=== PATIENT | female | born 1990 | race Caucasian/White ===

== ENCOUNTER → 2020-03-14 09:31 | Outpatient (BNVA) | payer MEDICAID, SELFPAY | PROVIDERS: Family Provider Family Medicine; Visit Provider Obstetrics & Gynecology | DX: E22.1 Hyperprolactinemia (principal); N91.2 Amenorrhea, unspecified; R23.2 Flushing | CPT/HCPCS: 84146 ==

== ENCOUNTER 2020-03-31 09:12 | Emergency (ER) | payer MEDICAID, SELFPAY ==
[2020-03-31 09:25] VITALS: BP 126/87; PULSE 100; RESP 16; TEMP 35.8; O2SAT 97; BMI 37.4
--- NOTE | 2020-03-31 09:25 | ED_ITS ---
HPI - Extremity Injury (Lower) General: Chief Complaint: Extremity Problem,Nontraumatic Stated Complaint: LEFT THIGH PAIN Time Seen by Provider: 03/31/20 09:24 Source: patient Mode of arrival: ambulatory Limitations: no limitations History of Present Illness: HPI Narrative: Patient comes in with lateral upper leg pain on the left for approximately 1 week. Patient states that she usually gets leg cramps with her. But had finished her period and the cramps have continued. Patient denies any nausea vomiting or diarrhea. Patient denies any fever. Patient appears well. Patient ambulates without difficulty. Review of Systems General: Reports: 10 or more systems reviewed and unremarkable except in HPI and below Musc: Reports: extremity pain (Left lateral upper leg.) PFSH ED PFSH: Medical History (Updated 03/31/20 @ 09:42 by MYNOR Alexander) Amenorrhea Hyperprolactinemia induced Hyperprolactinemia Hypothyroidism Migraine headache Obsessive compulsive disorder Tourette's Surgical History Hx of bilateral breast reduction surgery (~07/2014) Hx of tonsillectomy (~1999) Family History Mother Family history of thyroid problem Father Diabetes Family/Other Hypertension Family history of thyroid problem SEVERAL FAMILY MEMBERS Colon cancer GREAT-GRANDMOTHER Social History Smoking and tobacco status: never smoked Alcohol intake: never Physical Exam Const: COMMON NORMALS: no acute distress and patient oriented x3 GENERAL APPEARANCE: cooperative HENMT: COMMON NORMALS: normocephalic and Normal external nose present HEAD & SCALP: normal to inspection and normocephalic NOSE: Normal external nose present MOUTH: Normal oral and palatal mucosa present Eye: GENERAL EYE: appearance normal, both eyes and all related structures Neck/C-Spine: COMMON NORMALS: full ROM Lymph: LYMPHATIC: no lymphadenopathy noted Chest: COMMONS NORMALS: normal inspection of the chest Resp: COMMON NORMALS: normal respiratory effort EFFORT & INSPECTION: Yes able to speak in complete sentences Cardio: COMMON NORMALS: regular rate and regular rhythm RATE: regular rate RHYTHM: regular rhythm GI: COMMON NORMALS: non-tender : COMMON NORMALS: Yes no CVA tenderness BLADDER/KIDNEY EXAM: Yes no CVA tenderness Back/Pelvis: COMMON NORMALS: no CVA tenderness and thoracic and lumbar spine normal to inspection Extremity: COMMON NORMALS: normal to inspection NARRATIVE EXTREMITY EXAM: Normal range of motion of the extremity, no redness or swelling to the left lower leg. Neuro: COMMON NORMALS: patient oriented x3 and moves all extremities Psych: COMMON NORMALS: mental status grossly normal and cooperative Skin: COMMON NORMALS: no rashes or lesions noted GENERAL SKIN EXAM: no rashes or lesions noted Course Vital Signs: Vital signs: Vital Signs Temperature 96.5 F L 03/31/20 09:25 Pulse Rate 100 03/31/20 09:25 Respiratory Rate 16 03/31/20 09:25 Blood Pressure 126/87 03/31/20 09:25 Pulse Oximetry 97 03/31/20 09:25 MDM - Extremity Injury (Lower) MDM Narrative: Medical decision making narrative: Patient comes in today for complaints of left thigh pain. Patient states that she gets thigh pain at times with her periods. The patient has gotten off her period and continues to have left thigh pain. Patient denies any increase in activity or fever. Patient appears well. Exam notes weightbearing individual without any significant loss of movement or favoring of the extremity. Distal pulses are intact. No significant redness or swelling is noted. Differential diagnosis includes piriformis syndrome, lumbar radiculopathy, muscle strain. Reviewed exam with patient with recommendations for treatment and need for follow-up. Patient reported understanding and agreed to plan. Believe patient probably has some musculoskeletal pain due to either a strain or a possible radiculopathy of the lumbar region. Discharge Plan Discharge Patient Disposition: Home, Self-Care Clinical Impression: Piriformis syndrome Qualifiers: Laterality: left Qualified Code(s): G57.02 - Lesion of sciatic nerve, left lower limb Condition: Stable Prescriptions: New diclofenac sodium 75 mg tablet,delayed release (DR/EC) 75 mg PO BID Qty: 14 RF: 0 baclofen 10 mg tablet 10 mg PO BID Qty: 14 RF: 0 No Action Premphase 0.625 mg (14)/ 0.625mg-5mg(14) tablet 1 tab PO QDAY RF: 0 cabergoline 0.5 mg tablet 0.5 mg PO .TWICE WEEKLY RF: 0 buspirone 5 mg tablet 5 mg PO BID RF: 0 Latuda 20 mg tablet 20 mg PO .UNKNOWN RF: 0 ibuprofen 200 mg capsule 600 mg PO Q6H PRNRF: 0 haloperidol 5 mg tablet 5 mg PO QDAY RF: 0 clomipramine 50 mg capsule 150 mg PO .BEDTIME RF: 0 lorazepam [Ativan] 0.5 mg tablet 0.5 mg PO BID RF: 0 hydroxyzine HCl 25 mg tablet 25 mg PO BID PRNRF: 0 levothyroxine 50 mcg capsule 50 mcg PO QDAY RF: 0 sumatriptan succinate 50 mg tablet 50 mg PO ONCE RF: 0 Discharge Orders: Discharge Order (Routine); Ordered 03/31/20 Ordered By: Kavon Young Referrals: Lamberto Mejias MD [Primary Care Provider] - Discharge Diet: Usual diet Discharge Activity: Increase activity as tolerated Patient Instructions: Muscle Strain (ED) Activity Restrictions/Additional Instructions: Gentle stretching and range of motion exercises. Drink plenty of water with me dication. Activity as tolerated. Follow-up with primary care in 1 week. Use acetaminophen as needed for further pain relief. Use ice or heat for further comfort. Return to the ER for increased redness or swelling to the leg or high fever. Coding Level of Care Code ED Director Of In Service Education for Cristobalg Fwd Exam Comprehensive
--- NOTE | 2020-03-31 10:26 | PC.NURSE ---
Read and agree with assessment.
== END 2020-03-31 09:59 | disposition home or self-care (01) ==
LOC: ER 10:15
PROVIDERS: Emergency Provider Nurse Practitioner Family; PCP Family Medicine
DX: G57.02 Lesion of sciatic nerve, left lower limb (principal)
CPT/HCPCS: 12345; 99281; 99282

== ENCOUNTER 2020-04-24 12:22 | Outpatient (CLI) | payer MEDICAID, SELFPAY ==
--- NOTE | 2020-04-24 12:36 | XRR_ITS ---
PROCEDURE INFORMATION: Exam: XR Left Femur Exam date and time: 04/24/2020 12:54 PM Age: 29 years old Clinical indication: Thigh; Prior surgery; Surgery date: 6+ months; Surgery type: Left knee; Patient HX: C/O left leg pain x 1 month TECHNIQUE: Imaging protocol: XR Left femur. Views: 2 views. COMPARISON: [facility] Knee LEFT 1-2 views 12/27/2014 4:38 PM FINDINGS: Bones/joints: Unremarkable. No acute fracture. Soft tissues: Unremarkable. XR/XR femur LT min 2V* [id number] IMPRESSION: No acute findings.
== END 2020-04-24 12:23 | disposition home or self-care (01) ==
LOC: RAD 12:25
PROVIDERS: PCP Family Medicine; Visit Provider Family Medicine
DX: M79.605 Pain in left leg (principal)
CPT/HCPCS: 73552

== ENCOUNTER 2020-12-23 20:38 | Emergency (ER) | payer MEDICAID, SELFPAY ==
[2020-12-23 21:20] VITALS: BP 125/90; PULSE 105; RESP 18; TEMP 36.5; O2SAT 98; BMI 40.4
--- NOTE | 2020-12-23 22:54 | ED_ITS ---
HPI - General Adult General: Chief complaint: General Medical Stated complaint: left hip and leg pain Time Seen by Provider: 12/23/20 22:54 History of Present Illness: HPI narrative: Patient is a 30-year-old female comes to the ED with lower back pain radiates down into left leg. Patient has been seen by PCP on December 15 for same complaint and she was given a steroid shot at that time. She says that the lower back pain that radiates down her left leg is still there and she rates the pain a 8 out of 10. She says the pain in her leg is described as sharp and prickly. Denies any bladder or bowel incontinence, pelvic anesthesia or weakness to lower extremities. Associated symptoms: Deny chest pain, dyspnea, headache(s), nausea, rash, palpitations or vomiting Review of Systems Const: Denies: fever(s), chills or fatigue Eyes: Denies: change in vision or eye discomfort ENMT: Denies: throat pain, odynophagia, nasal discharge or nasal congestion Card: Denies: chest pain, palpitations, edema, swelling of feet/ankles, dyspnea on exertion or orthopnea Resp: Denies: dyspnea, productive cough or non-productive cough GI: Denies: abdominal pain, nausea, vomiting, diarrhea, constipation or hematochezia : Denies: flank pain, dysuria or hematuria Musc: Reports: back pain (lower back pain that radiates down to left leg); Denies: neck pain or extremity swelling Skin/Breast: Denies: rash or new lesions Neuro: Denies: headache(s), numbness in extremities or weakness in extremities PFS ED PFSH: Medical History Amenorrhea Hyperprolactinemia induced Hyperprolactinemia Hypothyroidism Migraine headache Obsessive compulsive disorder Tourette's Surgical History Hx of bilateral breast reduction surgery (~07/2014) Hx of tonsillectomy (~1999) Family History Mother Family history of thyroid problem Father Diabetes Family/Other Hypertension Family history of thyroid problem SEVERAL FAMILY MEMBERS Colon cancer GREAT-GRANDMOTHER Social History Smoking and tobacco status: never smoked Alcohol intake: never Physical Exam Const: COMMON NORMALS: no acute distress, patient oriented x3 and alert GENERAL APPEARANCE: cooperative and comfortable HENMT: COMMON NORMALS: normocephalic HEAD & SCALP: normocephalic MOUTH: Normal oral and palatal mucosa present THROAT: posterior oropharynx normal and uvula midline Neck/C-Spine: COMMON NORMALS: supple GENERAL: Yes normal visual inspection Resp: COMMON NORMALS: normal respiratory effort, No retractions, No use of accessory muscles and clear to auscultation bilaterally AUSCULTATION: clear to auscultation bilaterally Cardio: COMMON NORMALS: regular rate, regular rhythm, S1 normal heart sound present, S2 normal heart sound present, No gallops present (Cardio), No clicks present (Cardio), No murmurs present (Cardio) and Peripheral pulses 2+ throughout RATE: regular rate RHYTHM: regular rhythm HEART SOUNDS: S1 normal heart sound present and S2 normal heart sound present PERIPHERAL PULSES: Peripheral pulses 2+ throughout GI: COMMON NORMALS: Normal to inspection, nondistended, normoactive bowel sounds present, Soft to palpation, non-tender and no masses PALPATION: Yes Soft to palpation : COMMON NORMALS: Yes no CVA tenderness BLADDER/KIDNEY EXAM: Yes no CVA tenderness Back/Pelvis: COMMON NORMALS: no CVA tenderness LUMBAR SPINE/LOWER BACK: No lumbar spinal tenderness and Yes paraspinal muscle tenderness Lumbar paraspinal muscle tenderness: left Extremity: COMMON NORMALS: normal to inspection Neuro: COMMON NORMALS: patient oriented x3 and moves all extremities SENSORIUM/ORIENTATION: Yes alert Skin: GENERAL SKIN EXAM: dry skin Course Vital Signs: Vital signs: Vital Signs Temperature 97.7 F 12/23/20 21:20 Pulse Rate 109 H 12/23/20 23:35 Respiratory Rate 18 12/23/20 23:35 Blood Pressure 137/83 12/23/20 23:35 Pulse Oximetry 96 12/23/20 23:35 MDM - General Adult MDM Narrative: Medical decision making narrative: Patient is a 30-year-old female comes to the ED with lower back pain that radiates down the left leg. History and exam findings suggestive of lumbar radiculopathy. Denies any cauda equina symptoms. Patient was discharged with a prescription for Medrol Dosepak, methocarbamol and meloxicam. Return to ED precautions given. Follow-up with PCP in 7 to 10 days reevaluation. Patient understood agree with plan. Discharge Plan Discharge Patient Disposition: Home Clinical Impression: Lumbar radiculopathy Condition: Stable Prescriptions: New methocarbamol 750 mg tablet 750 mg PO Q8H Qty: 20 RF: 0 Medrol (Chuckie) 4 mg tablets,dose pack See Rx Instructions .ROUTE .COMPLEX Qty: 21 RF: 0 meloxicam 15 mg tablet 15 mg PO DAILY Qty: 15 RF: 0 No Action Vitamin D3 Complete 5 mg RF: 0 clomipramine 150 mg DAILY RF: 0 Synthroid 125 mcg Tablet 125 mcg PO DAILY RF: 0 Ativan 1 mg Tablet 1 mg PO BID PRN (Reason: Anxiety) RF: 0 buspirone 15 mg BID RF: 0 propranolol 10 mg Tablet 10 mg PO BID RF: 0 hydroxyzine HCl 25 mg Tablet 25 mg PO BID PRN (Reason: other) RF: 0 haloperidol 5 mg BID RF: 0 Discharge Orders: Discharge ED (Routine); Ordered 12/23/20 Ordered By: Lamberto Kwon Referrals: Lamberto Mejias MD [Primary Care Provider] - Discharge Diet: Regular Discharge Activity: Increase activity as tolerated Patient Instructions: Lumbar Radiculopathy (ED) Activity Restrictions/Additional Instructions: Follow-up with medical provider as directed in 7 to 10 days for reevaluation. Take medications as prescribed. Apply cold pack on lower back to help with symptoms. Stretch lower back daily as well to help with symptoms. Methocarbamol is a muscle relaxer and can cause some drowsiness so take at night before bed. If you are any use during the day use with caution. Return to the ER or your medical provider if condition worsens. Please read and understand discharge instructions. If any questions, please ask. Coding Level of Care Code ED Refrigerator Car Icer for Alexei Fwd Exam Comprehensive
[2020-12-23] MEDS: predniSONE 20 mg Tablet 60 MG PO (23:30)
[2020-12-23] MEDS: HYDROcodone-acetaminophen 7.5-325 mg Tablet 1 TAB PO (23:30)
[2020-12-23 23:35] VITALS: BP 137/83; PULSE 109; RESP 18; O2SAT 96
== END 2020-12-23 23:36 | disposition home or self-care (01) ==
PROVIDERS: Emergency Provider Physician Assistant; PCP Family Medicine
DX: M54.16 Radiculopathy, lumbar region (principal)
CPT/HCPCS: 99283; J7512

== ENCOUNTER 2020-12-25 10:39 | Outpatient (CLI) | payer MEDICAID, SELFPAY ==
--- NOTE | 2020-12-25 10:52 | XR_ITS ---
WS: [id number] XR hip LT 2-3V wo/w pel* [id number] REASON FOR EXAM: LEFT LEG PAIN/LEFT LUMBAR RADICULOPATHY FINDINGS: Mild narrowing of the left hip joint space with minor acetabular spurring. No focal bony abnormality. No soft tissue abnormality. XR/XR hip LT 2-3V wo/w pel* [id number] IMPRESSION: Minor arthropathic change as above.
--- NOTE | 2020-12-25 10:52 | XR_ITS ---
WS: [id number] XR lumbar spine 2-3V* [id number] REASON FOR EXAM: LEFT LUMBAR RADICULOPATHY FINDINGS: There are 5 nonrib lumbar vertebrae. In the neutral position there is some loss of the normal lordosis of the lumbar spine. No focal vertebral body abnormality identified. The intervertebral disc spaces are relatively well-preserved. There is minimal degenerative facet joint change from L4 to S1. There is no abnormal movement of the lumbar spine between flexion and extension. XR/XR lumbar spine 2-3V* [id number] IMPRESSION: Straightening of the lumbar spine may be No significant findings of generalized spondylosis.
--- NOTE | 2020-12-25 10:52 | XR_ITS ---
WS: [id number] XR femur LT min 2V* [id number] REASON FOR EXAM: LEFT LEG PAIN/LEFT LUMBAR RADICULOPATHY FINDINGS: Mild loss of left hip space. Minor osteophytic spurring of the acetabulum. No focal bony abnormality. No soft tissue abnormality. XR/XR femur LT min 2V* [id number] IMPRESSION: Minimal arthropathic change as above.
== END 2020-12-25 10:40 | disposition home or self-care (01) ==
PROVIDERS: PCP Family Medicine; Visit Provider Family Medicine
DX: M54.16 Radiculopathy, lumbar region (principal); M79.605 Pain in left leg
CPT/HCPCS: 72100; 73502; 73552

== ENCOUNTER 2021-01-14 08:20 | Outpatient (RCR) | payer MEDICAID, SELFPAY | END 2021-01-30 11:46 | disposition home or self-care (01) | LOC: SPT 08:20 | PROVIDERS: PCP Family Medicine; Referring Provider Family Medicine; Visit Provider Family Medicine | DX: M54.9 Dorsalgia, unspecified (principal) | CPT/HCPCS: 97110; 97161 ==

== ENCOUNTER → 2021-05-28 14:44 | Outpatient (BNVA) | payer MEDICAID, SELFPAY | PROVIDERS: PCP Family Medicine; Visit Provider Obstetrics & Gynecology | DX: Z12.4 Encounter for screening for malignant neoplasm of cervix (principal) | CPT/HCPCS: 88175 ==

== ENCOUNTER → 2021-07-04 14:02 | Outpatient (BNVA) | payer MEDICAID, SELFPAY | PROVIDERS: PCP Family Medicine; Visit Provider Podiatrist Foot & Ankle Surgery | DX: S92.512A Displaced fracture of proximal phalanx of left lesser toe(s), initial encounter for closed fracture (principal); M21.612 Bunion of left foot; M79.672 Pain in left foot; X58.XXXA Exposure to other specified factors, initial encounter | CPT/HCPCS: 73630 ==

== ENCOUNTER 2021-07-04 14:56 | Outpatient (CLI) | payer MEDICAID, SELFPAY | END 2021-07-04 14:57 | disposition home or self-care (01) | LOC: SPT 14:57 | PROVIDERS: PCP Family Medicine; Visit Provider Podiatrist Foot & Ankle Surgery | DX: Z46.89 Encounter for fitting and adjustment of other specified devices (principal); S92.402D Displaced unspecified fracture of left great toe, subsequent encounter for fracture with routine healing; X58.XXXD Exposure to other specified factors, subsequent encounter | CPT/HCPCS: 97760; L4361 ==

== ENCOUNTER 2021-07-13 14:05 | Emergency (ER) | payer MEDICAID, SELFPAY ==
[2021-07-13 14:24] VITALS: BP 124/76; PULSE 90; RESP 18; TEMP 36.6; O2SAT 96; BMI 20.7
--- NOTE | 2021-07-13 16:15 | CTR_ITS ---
PROCEDURE INFORMATION: Exam: CT Head Without Contrast Exam date and time: 07/13/2021 4:15 PM Age: 31 years old Clinical indication: Pain; Headache not specified; Patient HX: C/O LEVIN and nausea; Additional info: Evaluate for pituitary adenoma/bleed/ etc TECHNIQUE: Imaging protocol: Computed tomography of the head without contrast. Total images: 185 Radiation optimization: All CT scans at this facility use at least one of these dose optimization techniques: automated exposure control; mA and/or kV adjustment per patient size (includes targeted exams where dose is matched to clinical indication); or iterative reconstruction. COMPARISON: CT head wo con* [id number] 08/10/2016 4:17 PM RADIATION DOSE METRICS: Total DLP (mGy-cm): 802.36 FINDINGS: Brain: No evidence of active or acute intracranial pathologic process, hemorrhage, or trauma. No visible evidence of diffuse cerebral edema or generalized demyelination. No mass effect. No midline shift. No hyperdense MCA or insular ribbon sign. Cerebral ventricles: No ventriculomegaly. Paranasal sinuses: Visualized sinuses are unremarkable. No fluid levels. Mastoid air cells: Visualized mastoid air cells are well aerated. Bones/joints: Unremarkable. No acute fracture. Soft tissues: Unremarkable. CT/CT head wo con* [id number] IMPRESSION: No evidence of active or acute intracranial pathologic process, hemorrhage, or trauma. Radiation Dose CTDIVOL = (mGy): DLP = 802.36 (mGy-cm)
[2021-07-13 16:27] VITALS: BP 122/82; PULSE 92; RESP 18; O2SAT 98
--- NOTE | 2021-07-13 16:28 | PC.NURSE ---
pt stated pain decreasing, doing a little better per pt
--- NOTE | 2021-07-13 17:33 | W.ED.HA ---
HPI - Headache General: Chief Complaint: Headache Stated Complaint: h/a Time Seen by Provider: 07/13/21 17:33 History of Present Illness: HPI Narrative: Ms. Dye is a 31-year-old lady with significant past medical history of psychiatric disorder who presents the emergency department due to headache. She does have a history of headache but does not recall any specifically 1 in the past few years. Most recently this episode started approximately 3 to 4 days ago and was subacute. She endorses migratory generalized aching and sharp pain which is moderate in intensity. Initially started in the left forehead but her sister migrated. Symptoms are associated with nausea but no vomiting. She does have generalized malaise. No other infectious symptoms. She notes associated sound sensitivity or light sensitivity. No other specific changes in health, exacerbating, or alleviating factors identified. Review of Systems General: Reports: 10 or more systems reviewed and unremarkable except in HPI and below PFSH ED PFSH: Medical History Hyperprolactinemia Diagnosed in her 20s and managed by ventilating equipment installer Dr. Nick in [facility]. She does not think she is on any medication. Hypothyroidism Diagnosed in her 20s and managed on medication by ventilating equipment installer Dr. Nick in [facility] No pertinent past medical history Denies diabetes, asthma, hypertension, seizures, DVT/PE PCP: Dr. Mejias Obsessive compulsive disorder , Tourette's disease--managed by medication by psychiatrist Dr. Martin in [place]. Surgical History Hx of bilateral breast reduction surgery (~07/2014) Hx of tonsillectomy (~1999) Family History Mother Thyroid condition thyroid cancer Hypertension Father Diabetes Thyroid condition Family/Other Colon cancer maternal great grandmother Grandmother Heart disease maternal Hypertension materal Grandfather Hypertension maternal Denies family history of Ovarian cancer Hyperlipidemia Breast cancer Uterine cancer Stroke Social History Alcohol intake: never Physical Exam Narrative: EXAM NARRATIVE: GENERAL/CONSTITUTIONAL - well-appearing. No acute distress. Eyes - PERRL, no conjunctival injection ENMT - Atraumatic external nose and ears. Moist mucous membranes NECK - supple. trachea midline CARDIOVASCULAR - regular rate and rhythm. Peripheral pulses 2+ and equal RESPIRATORY -clear to auscultation bilaterally. No retractions or accessory muscle use. ABDOMEN/GI - Nontender, Nondistended. No tenderness to percussion or evidence of peritonitis MSK - Extremities without obvious deformity or tenderness to palpation SKIN - Warm, Dry NEURO - alert and appropriately oriented. Cranial nerves II through XII intact. Strength and sensation intact. Moves all extremities equally. PSYCH - Appropriate mood and affect Course ED course: - Patient was seen and evaluated by me at bedside - Patient placed on cardiac monitors, IV access obtained - Initial evaluation notable for discomfort due to headache, mild photophobia. Nontoxic. - Headache cocktail ordered. - Due to ED workload and limited room availability a CT of the head have been ordered prior to my evaluation of the patient. Given no recent imaging in moderate system and unclear history of hyperprolactinemia this was appropriate. Imaging notable for no acute abnormality. - Upon serial reexamination after treatment the patient was improved with resolution of headache - Based on patient history, evaluation, labs, and imaging as interpreted the most likely cause of the patient's condition is headache likely secondary to headache disorder - The results of ED evaluation were discussed with the patient including prescriptions and/or symptomatic cares (if applicable) including appropriate and responsible use, followup plan, and return precautions. The patient verbalized understanding and felt safe for discharge. - Patient discharged in satisfactory condition. Vital Signs: Vital signs: Vital Signs Temperature 97.9 F 07/13/21 14:24 Pulse Rate 77 07/13/21 19:31 Respiratory Rate 18 07/13/21 19:31 Blood Pressure 124/77 07/13/21 19:31 Pulse Oximetry 99 07/13/21 19:31 MDM - Headache Medical Records: Attestation: I reviewed the patient's medical records. Lab Data: Attestation: I reviewed the patient's lab results. Labs: Lab Results 07/13/21 18:13 HCG, Qual Negative (Negative) Discharge Plan Discharge Patient Disposition: Home Clinical Impression: Headache Condition: Stable Prescriptions: New Reglan 10 mg tablet 10 mg PO Q6H PRN (Reason: headache) Qty: 5 RF: 0 No Action polyethylene glycol 3350 17 gram/dose powder 17 g PO BID PRNRF: 0 hydrocodone-acetaminophen 5-325 mg tablet 1 tab PO Q8H PRN (Reason: pain) 7 Days Qty: 21 RF: 0 (DME) [facility] WALKER See Rx Instructions .Route .MEDSUPPLY Qty: 1 RF: 0 Premphase 0.625 mg (14)/ 0.625mg-5mg(14) tablet 1 tab PO DAILY Qty: 28 RF: 11 Vitamin D3 Complete 5 mg RF: 0 clomipramine 150 mg DAILY RF: 0 Synthroid 125 mcg Tablet 125 mcg PO DAILY RF: 0 Ativan 1 mg Tablet 1 mg PO BID PRN (Reason: Anxiety) RF: 0 buspirone 15 mg BID RF: 0 propranolol 10 mg Tablet 10 mg PO BID RF: 0 haloperidol 5 mg BID RF: 0 methocarbamol 750 mg tablet 750 mg PO Q8H Qty: 20 RF: 0 hydroxyzine HCl 25 mg tablet 25 mg PO BID RF: 0 Discharge Orders: Discharge ED (Routine); Ordered 07/13/21 Ordered By: Margarito Ruby Referrals: Lamberto Mejias MD [Primary Care Provider] - Discharge Diet: Usual diet Discharge Activity: Resume usual activity Patient Instructions: Acute Headache (ED) Activity Restrictions/Additional Instructions: Thank you for visiting the emergency department. You were seen and evaluated for headache. The exact cause of your symptoms is unclear though is likely related to headache disorder. Please follow-up with your primary care provider. Please return the emergency department for worsening symptoms or anything else that you are concerned about and feel needs emergent evaluation. Coding Level of Care Code ED Creative Manager for Alexei Zhao
[2021-07-13] MEDS: metoclopramide 5 mg/mL SDV 2 mL 10 MG IVP (18:05)
[2021-07-13] MEDS: acetaminophen 500 mg Tablet 1000 MG PO (18:05)
[2021-07-13] MEDS: diphenhydrAMINE 50 mg/mL SDV 1mL 25 MG IVP (18:06)
[2021-07-13] MEDS: sodium chloride 0.9% 1,000 ML 999 ML IV (18:06)
[2021-07-13 18:31] LABS: HCG Qualitative Urine. Negative (Negative)
[2021-07-13 19:31] VITALS: BP 124/77; PULSE 77; RESP 18; O2SAT 99
== END 2021-07-13 19:32 | disposition home or self-care (01) ==
PROVIDERS: Emergency Provider Emergency Medicine; PCP Family Medicine
DX: R51.9 Headache, unspecified (principal)
CPT/HCPCS: 70450; 81025; 96361; 96374; 96375; 99283; J1200; J2765; J7030

== ENCOUNTER → 2021-07-24 11:14 | Outpatient (BNVA) | payer MEDICAID, SELFPAY | PROVIDERS: PCP Family Medicine; Visit Provider Podiatrist Foot & Ankle Surgery | DX: S92.415A Nondisplaced fracture of proximal phalanx of left great toe, initial encounter for closed fracture; S92.502A Displaced unspecified fracture of left lesser toe(s), initial encounter for closed fracture; M79.672 Pain in left foot; X58.XXXA Exposure to other specified factors, initial encounter | CPT/HCPCS: 73630 ==

== ENCOUNTER 2021-08-02 19:51 | Emergency (ER) | payer MEDICAID, SELFPAY ==
[2021-08-02 19:57] VITALS: BP 155/94; PULSE 108; RESP 18; TEMP 36.1; O2SAT 95; BMI 37.9
--- NOTE | 2021-08-02 20:56 | ED_ITS ---
HPI - General Adult General: Chief complaint: Psychiatric Symptoms Stated complaint: psych pt Time Seen by Provider: 08/02/21 19:57 History of Present Illness: HPI narrative: HPI: [31]yo patient w/ hx of depression and anxiety presenting to the ED after she called the police and got into an altercatoin with her parents. On arrival, the patient is AAOx3 and cooperative with my evaluation. Patient denies any thoughts of hurting self, but reports significant anxiety and hopelessness. No focal complaints of chest pain, shortness of breath, palpitations, N/V, focal GI/ complaints. Currently denies SI/HI. No complaints of hallucinations. Onset: chronic Duration: ongoing Location: home Severity: moderate Review of Systems Narrative: Constitutional: No fever, no chills. HEENT: No vision changes CV: No chest pain, no palpitations PULM: No productive cough, no dyspnea. GI: No abdominal pain, no N/V/D. : No dysuria MSKEL: No muscle pain SKIN: No new rashes, no lesions. NEURO: No headache, no focal weakness. HEME: No visible bruises PSYCH: Normal mood PFSH ED PFSH: Medical History Hyperprolactinemia Diagnosed in her 20s and managed by tool and machine maintainer Dr. Nick in [facility]. She does not think she is on any medication. Hypothyroidism Diagnosed in her 20s and managed on medication by tool and machine maintainer Dr. Nick in [facility] No pertinent past medical history Denies diabetes, asthma, hypertension, seizures, DVT/PE PCP: Dr. Mejias Obsessive compulsive disorder , Tourette's disease--managed by medication by psychiatrist Dr. Martin in [place]. Surgical History Hx of bilateral breast reduction surgery (~07/2014) Hx of tonsillectomy (~1999) Family History Mother Thyroid condition thyroid cancer Hypertension Father Diabetes Thyroid condition Family/Other Colon cancer maternal great grandmother Grandmother Heart disease maternal Hypertension materal Grandfather Hypertension maternal Denies family history of Ovarian cancer Hyperlipidemia Breast cancer Uterine cancer Stroke Social History Alcohol intake: never Physical Exam Narrative: EXAM NARRATIVE: Head: Atraumatic Eyes: PERRL, conjunctiva without injection, eyes tracking ENT: Mucous membrane moist NECK: Supple without lymphadenopathy LUNGS: LCTAB CV: RRR ABDOMEN: Soft, nontender EXTREMITY: Normal ROM SKIN: No rash or erythema NEURO: Awake and alert. No focal weakness PSYCH: Cooperative mood and affect. Course Vital Signs: Vital signs: Vital Signs Temperature 96.9 F L 08/02/21 19:57 Pulse Rate 108 H 08/02/21 19:57 Respiratory Rate 18 08/02/21 19:57 Blood Pressure 155/94 08/02/21 19:57 Pulse Oximetry 95 08/02/21 19:57 MDM - General Adult MDM Narrative: Medical decision making narrative: [31]yo patient w/ hx of depression and anxiety presenting for hopelessness and anxiety. HDS, exam within normal limit Thoughts are linear and organized, and the patient has no AH/VH, or HI. Clinically the patient displays no overt toxidrome; they are well appearing, with low suspicion for toxic ingestion given history and exam. Symptoms unlikely 2/2 anemia, hypothyroidism, infection, or ICH. [8:57] Patient is hemodynamically stable with no acute medical complaints. Case discussed with psychiatric provider Dr. Gay at [facility] psych inpatient who evaluated patient via telepsych and recommended discharge with close follow-up. Disposition: Discharge Discharge Plan Discharge Patient Disposition: Home Clinical Impression: Anxiety Condition: Stable Prescriptions: No Action polyethylene glycol 3350 17 gram/dose powder 17 g PO BID PRNRF: 0 Premphase 0.625 mg (14)/ 0.625mg-5mg(14) tablet 1 tab PO DAILY Qty: 28 RF: 11 Vitamin D3 Complete 5 mg RF: 0 clomipramine 150 mg DAILY RF: 0 Synthroid 125 mcg Tablet 125 mcg PO DAILY RF: 0 Ativan 1 mg Tablet 1 mg PO BID PRN (Reason: Anxiety) RF: 0 buspirone 15 mg BID RF: 0 propranolol 10 mg Tablet 10 mg PO BID RF: 0 haloperidol 5 mg BID RF: 0 methocarbamol 750 mg tablet 750 mg PO Q8H Qty: 20 RF: 0 hydroxyzine HCl 25 mg tablet 25 mg PO BID RF: 0 Reglan 10 mg tablet 10 mg PO Q6H PRN (Reason: headache) Qty: 5 RF: 0 Discharge Orders: Discharge ED (Routine); Ordered 08/02/21 Ordered By: Meredith Watson Referrals: Lamberto Mejias MD [Primary Care Provider] - Discharge Diet: Advance as tolerated Discharge Activity: Resume usual activity Patient Instructions: Anxiety (ED) Activity Restrictions/Additional Instructions: Please come back to the emergency room have any worsening symptoms, any thoughts of hurting yourself or other people, or any active hallucinations. Coding Level of Care Code ED Human Resources Hr Generalist for Alexei Zhao
[2021-08-02 21:03] VITALS: BP 152/82; PULSE 114; RESP 18; O2SAT 98
--- NOTE | 2021-08-02 21:20 | PM.PSYCN ---
Providers/Reason for Consult Consulting Physican/Specialty*: Darren Gay MD/psychiatry Reason for Consult*: Altercation with parents Primary Care Provider: Lamberto Mejias MD Psych Consult HPI History of Present Illness Kailyn Dye is a 31 year old female the ED note states: [31]yo patient w/ hx of depression and anxiety presenting to the ED after she called the police and got into an altercation with her parents. On arrival, the patient is AAOx3 and cooperative with my evaluation. Patient denies any thoughts of hurting self, but reports significant anxiety and hopelessness. No focal complaints of chest pain, shortness of breath, palpitations, N/V, focal GI/ complaints. Currently denies SI/HI. No complaints of hallucinations. I met with the patient via televideo. The patient agrees that she did have an altercation with her parents. She says she has been stressed recently because of a work situation. This exacerbated the conflict with her parents. She has now made up with them and feels much better. In fact, she was on the phone with her mother when the video started. Her mother indicated that she and her father were on their way to pick her up. She denies any urges to harm herself or others. She denies any previous suicidal ideation, suicide attempts, or violence to others. No substance use. She does have a history of psychiatric treatment for OCD and Tourette's, and sees Dr. Stephon Mcguire in [place], [place] for medication management. She was hospitalized multiple times when she was younger and none in the last 9 years. PFSH NPU PFSH: Medical History Hyperprolactinemia Diagnosed in her 20s and managed by technology training associate Dr. Nick in [facility]. She does not think she is on any medication. Hypothyroidism Diagnosed in her 20s and managed on medication by technology training associate Dr. Nick in [facility] No pertinent past medical history Denies diabetes, asthma, hypertension, seizures, DVT/PE PCP: Dr. Mejias Obsessive compulsive disorder , Tourette's disease--managed by medication by psychiatrist Dr. Martin in [place]. Surgical History Hx of bilateral breast reduction surgery (~07/2014) Hx of tonsillectomy (~1999) Family History Mother Thyroid condition thyroid cancer Hypertension Father Diabetes Thyroid condition Family/Other Colon cancer maternal great grandmother Grandmother Heart disease maternal Hypertension materal Grandfather Hypertension maternal Denies family history of Ovarian cancer Hyperlipidemia Breast cancer Uterine cancer Stroke Social History Alcohol intake: never Mental Status Exam MSE Comments: I met with the patient in her ED room per televideo. She was dressed in hospital scrubs and appropriately groomed. She was fairly calm, cooperative, interactive, and made good eye contact. No psychomotor agitation or retardation Speech is at a regular rate and rhythm, normal volume, good articulation, not pressured Alert, oriented to person, place, time, and situation Attention and concentration were intact to exam Memory is adequate for the interview Mood is still somewhat upset. Affect is pleasant, although still a bit anxious. Thought process is logical and goal-directed. Thought content: No auditory or visual hallucinations, no suicidal ideation or homicidal ideation. No delusions or paranoia are noted. Insight and judgment are fair. Impulse control is fair as well. Vitals/I&O/Wt Last Vital Signs Temp 96.9 F L 08/02/21 19:57 Pulse 114 H 08/02/21 21:03 Resp 18 08/02/21 21:03 BP 152/82 08/02/21 21:03 Pulse Ox 98 08/02/21 21:03 Weight last 48 hrs Weight 103.419 kg A&P Assessment and plan (1) Anxiety: The patient did have an altercation with her parents earlier and is still a bit anxious about it. She has no suicidal or homicidal ideation, nor does she have a history of such. Her risk of harm to self is low, and is expected to be even lower when her parents arrived to take her back home. They will be able to keep an eye on her, as she lives with them. She can follow-up with her outpatient provider, if needed. Status: Acute (2) Fracture of second toe, left, closed: Status: Acute Qualifiers: Encounter type: subsequent encounter Fracture healing: with routine healing Qualified Code(s): S92.502D - Displaced unspecified fracture of left lesser toe(s), subsequent encounter for fracture with routine healing (3) Fracture of left great toe: Status: Acute Qualifiers: Encounter type: subsequent encounter Fracture type: closed Phalanx: proximal Fracture alignment: nondisplaced Fracture healing: with routine healing Qualified Code(s): S92.415D - Nondisplaced fracture of proximal phalanx of left great toe, subsequent encounter for fracture with routine healing (4) Obsessive compulsive disorder: Status: Acute (5) Hypothyroidism: Status: Acute (6) Hyperprolactinemia: Status: Acute Attestations NPU Medical Necessity Statement*: Per ED provider Coding Level of Care Code Acute Product Development Manager for g Fwd Diagnoses Anxiety F41.9 Fracture of second toe, left, closed S92.502D Encounter type: subsequent encounter Fracture healing: with routine healing Fracture of left great toe S92.415D Encounter type: subsequent encounter Fracture type: closed Phalanx: proximal Fracture alignment: nondisplaced Fracture healing: with routine healing Obsessive compulsive disorder F42.9 Hypothyroidism E03.9 Hyperprolactinemia E22.1
== END 2021-08-02 21:06 | disposition home or self-care (01) ==
PROVIDERS: Emergency Provider Emergency Medicine; PCP Family Medicine
DX: F41.9 Anxiety disorder, unspecified (principal)
CPT/HCPCS: 99283; Q3014

== ENCOUNTER 2021-09-11 17:28 | Emergency (ER) | payer MEDICAID, SELFPAY ==
[2021-09-11 18:13] VITALS: BP 114/78; PULSE 98; RESP 18; TEMP 36.9; O2SAT 95; BMI 37.9
[2021-09-11 18:53] LABS: Charge for UA Resulting for Rev
[2021-09-11 19:01] LABS: Add Urine Microscopic? YES; Bilirubin Urine Neg (Negative); Blood Urine 3+ (Negative); Glucose Urine UA Norm (Normal); Ketones Urine Negative (Negative); Leukocyte Esterase Urine Negative (Negative); Nitrate Urine Negative (Negative); Protein Urine Neg (Negative); Urine Appearance Hazy (CLEAR); Urine Color Straw (Yellow); Urobilinogen Urine Norm (Negative); pH Urine 5 (5-7)
[2021-09-11 19:02] LABS: Bacteria Urine 1+ /hpf; WBC Urine 0-4 /hpf (0-5)
[2021-09-11 19:03] LABS: Add Urine Culture? No; Mucus Urine 1+ /hpf
--- NOTE | 2021-09-11 21:09 | ED_ITS ---
HPI - Female Genitourinary General: Chief complaint: Urogenital-Female Stated complaint: UTI COMPLICATIONS/LOWER BACK PAIN Time Seen by Provider: 09/11/21 20:39 History of Present Illness: HPI Narrative: Patient is a 31-year-old female comes to the ED with lower back pain. Patient has been seeing her PCP in the last 5 days and was being treated for UTI. She is still currently taking her antibiotic daily. her UTI symptoms have resolved but over the past couple days she has developed some bilateral lower back pain. Pain improves if she is laying still. If she starts moving back pain gets worse. She endorses wrestling and lifting approximately 4 days ago and her symptoms started couple days after that. Patient says she is currently on her menstrual period. Associated symptoms: Deny abdominal pain, headache(s) or nausea Review of Systems Const: Denies: fever(s), chills or fatigue Eyes: Denies: change in vision or eye discomfort ENMT: Denies: throat pain, odynophagia, nasal discharge or nasal congestion Card: Denies: chest pain, palpitations, edema, swelling of feet/ankles, dyspnea on exertion or orthopnea Resp: Denies: dyspnea, productive cough or non-productive cough GI: Denies: abdominal pain, nausea, vomiting, diarrhea, constipation or hematochezia : Denies: flank pain, dysuria or hematuria Musc: Reports: back pain; Denies: neck pain or extremity swelling Skin/Breast: Denies: rash or new lesions Neuro: Denies: headache(s), numbness in extremities or weakness in extremities [facility] ED PFSH: Medical History Hyperprolactinemia Diagnosed in her 20s and managed by music theory professor Dr. Nick in [facility]. She does not think she is on any medication. Hypothyroidism Diagnosed in her 20s and managed on medication by music theory professor Dr. Nick in [facility] No pertinent past medical history Denies diabetes, asthma, hypertension, seizures, DVT/PE PCP: Dr. Mejias Obsessive compulsive disorder , Tourette's disease--managed by medication by psychiatrist Dr. Martin in [place]. Surgical History Hx of bilateral breast reduction surgery (~07/2014) Hx of tonsillectomy (~2000) Family History Mother Thyroid condition thyroid cancer Hypertension Father Diabetes Thyroid condition Family/Other Colon cancer maternal great grandmother Grandmother Heart disease maternal Hypertension materal Grandfather Hypertension maternal Denies family history of Ovarian cancer Hyperlipidemia Breast cancer Uterine cancer Stroke Social History Alcohol intake: never Physical Exam Const: COMMON NORMALS: no acute distress, patient oriented x3, healthy appearing and alert GENERAL APPEARANCE: cooperative and comfortable HENMT: COMMON NORMALS: normocephalic HEAD & SCALP: normocephalic MOUTH: Normal oral and palatal mucosa present THROAT: posterior oropharynx normal and uvula midline Neck/C-Spine: COMMON NORMALS: supple GENERAL: Yes normal visual inspection Resp: COMMON NORMALS: normal respiratory effort, No retractions, No use of accessory muscles and clear to auscultation bilaterally AUSCULTATION: clear to auscultation bilaterally Cardio: COMMON NORMALS: regular rate, regular rhythm, S1 normal heart sound present, S2 normal heart sound present, No gallops present (Cardio), No clicks present (Cardio), No murmurs present (Cardio) and Peripheral pulses 2+ throughout RATE: regular rate RHYTHM: regular rhythm HEART SOUNDS: S1 normal heart sound present and S2 normal heart sound present PERIPHERAL PULSES: Peripheral pulses 2+ throughout GI: COMMON NORMALS: Normal to inspection, nondistended, normoactive bowel sounds present, Soft to palpation, non-tender and no masses PALPATION: Yes Soft to palpation : COMMON NORMALS: Yes no CVA tenderness BLADDER/KIDNEY EXAM: Yes no CVA tenderness Back/Pelvis: COMMON NORMALS: no CVA tenderness LUMBAR SPINE/LOWER BACK: Yes pain with ROM and Yes paraspinal muscle tenderness Lumbar paraspinal muscle tenderness: bilateral Bilateral lumbar paraspinal muscle tenderness: L3 and L4 Neuro: COMMON NORMALS: patient oriented x3 and moves all extremities SENSORIUM/ORIENTATION: Yes alert Skin: GENERAL SKIN EXAM: dry skin Course Vital Signs: Vital signs: Vital Signs Temperature 98.4 F 09/11/21 18:13 Pulse Rate 98 09/11/21 18:13 Respiratory Rate 18 09/11/21 18:13 Blood Pressure 114/78 09/11/21 18:13 Pulse Oximetry 95 09/11/21 18:13 MDM - Female MDM Narrative: Medical decision making narrative: Patient is a 31-year-old female comes to the ED with lower back pain. Patient's symptoms started couple days after she was wrestling and lifted something heavy. Lower back pain worsens with movement and improves if she is resting and lying still. She is currently being treated for UTI and says her symptoms for UTI have resolved exam of patient shows some lumbar muscular tenderness to palpation. Vitals stable. Patient is currently on her menstrual period. UA showed a little bit of blood, but no signs of infection. patient diagnosed with musculoskeletal back pain and given a dose of Toradol and Norflex while here in the ED. Patient was discharged home with a prescription for Celebrex and cyclobenzaprine. She was told to follow-up with her PCP in 7 to 10 days for reevaluation. Return to ED precautions given. Patient understood agree with plan. Lab Data: Labs: Lab Results 09/11/21 18:28 Urine Color Straw (Yellow) Urine Appearance Hazy A (CLEAR) Urine pH 5 (5-7) Ur Specific Gravit y 1.020 (1.005-1.030) Urine Protein Neg (Negative) Urine Glucose (UA) Norm (Normal) Urine Ketones Negative (Negative) Urine Blood 3+ H (Negative) Urine Nitrate Negative (Negative) Urine Bilirubin Neg (Negative) Urine Urobilinogen Norm mg/dL mg/dL (Negative) Ur Leukocyte Ashli ase Negative (Negative) Urine RBC Not Reportable Urine WBC 0-4 /hpf H /hpf (0-5) Ur Squamous Epith Cells 5-10 /hpf H /hpf (0-5) Amorphous Sediment Not Reportable Urine Bacteria 1+ /hpf H /hpf (NONE) Urine Mucus 1+ /hpf /hpf Discharge Plan Discharge Patient Disposition: Home Clinical Impression: Musculoskeletal back pain Condition: Stable Prescriptions: New Celebrex 100 mg capsule 100 mg PO BID PRN (Reason: pain) Qty: 20 RF: 0 cyclobenzaprine 10 mg tablet 10 mg PO BID PRN (Reason: muscle spasm) Qty: 20 RF: 0 No Action polyethylene glycol 3350 17 gram/dose powder 17 g PO BID PRNRF: 0 Premphase 0.625 mg (14)/ 0.625mg-5mg(14) tablet 1 tab PO DAILY Qty: 28 RF: 11 Vitamin D3 Complete 5 mg RF: 0 clomipramine 150 mg DAILY RF: 0 Synthroid 125 mcg Tablet 125 mcg PO DAILY RF: 0 Ativan 1 mg Tablet 1 mg PO BID PRN (Reason: Anxiety) RF: 0 buspirone 15 mg BID RF: 0 propranolol 10 mg Tablet 10 mg PO BID RF: 0 haloperidol 5 mg BID RF: 0 methocarbamol 750 mg tablet 750 mg PO Q8H Qty: 20 RF: 0 hydroxyzine HCl 25 mg tablet 25 mg PO BID RF: 0 Reglan 10 mg tablet 10 mg PO Q6H PRN (Reason: headache) Qty: 5 RF: 0 Discharge Orders: Discharge ED (Routine); Ordered 09/11/21 Ordered By: Lamberto Kwon Referrals: Lamberto Mejias MD [Primary Care Provider] - Discharge Diet: Regular Discharge Activity: Increase activity as tolerated Patient Instructions: Low Back Strain (ED), Back Pain (ED) Activity Restrictions/Additional Instructions: Follow-up with medical provider as directed in 7 to 10 days for reevaluation. Limit any lifting and rest for the next 3 to 5 days to help with healing. Take medications as prescribed. Cyclobenzaprine is a muscle relaxer and can cause some drowsiness so take at night before going to bed. You can also take some Tylenol throughout the day as well to help with pain as needed. You can take up to 1000 mg dose of Tylenol approximately three times a day as needed for pain. Apply cold pack or heat on lower back to help with symptoms. Stretch lower back two times a day to help with symptoms. Continue taking your previously prescribed antibiotic until prescription is finished. Drink plenty of water and stay hydrated. Return to the ER or your medical provider if condition worsens. Please read and understand discharge instructions. Thank you for choosing [facility] for your healthcare needs today. Please realize this is an emergency room and that we are providing you with a medical screening exam and this may not be complete and all inclusive of all the testing and or work up that you may need to determine your ailment or severity of your illness. It is very important that you follow up as instructed or that you return to the Emergency Department should you have concerns or if your condition changes or worsens in any way. Coding Level of Care Code ED Hospitality Team Member for Alexei Zhao Exam Comprehensive
[2021-09-11] MEDS: orphenadrine 30 mg/mL Inj 2 mL 60 MG IM (21:15)
[2021-09-11] MEDS: ketorolac 60 mg/2 mL INJ IM (21:17)
== END 2021-09-11 21:41 | disposition home or self-care (01) ==
PROVIDERS: Emergency Medicine; Emergency Provider Physician Assistant; PCP Family Medicine
DX: M54.9 Dorsalgia, unspecified (principal)
CPT/HCPCS: 81001; 81003; 96372; 99283; J1885; J2360

== ENCOUNTER → 2021-09-22 13:00 | Outpatient (BNVA) | payer MEDICAID, SELFPAY | PROVIDERS: PCP Family Medicine; Visit Provider Podiatrist Foot & Ankle Surgery | DX: S92.415D Nondisplaced fracture of proximal phalanx of left great toe, subsequent encounter for fracture with routine healing (principal); S92.502D Displaced unspecified fracture of left lesser toe(s), subsequent encounter for fracture with routine healing; X58.XXXD Exposure to other specified factors, subsequent encounter | CPT/HCPCS: 73630 ==

== ENCOUNTER 2021-10-20 07:59 | Outpatient (CLI) | payer MEDICAID, SELFPAY ==
[2021-10-20 08:02] VITALS: BP 144/97; PULSE 95; RESP 17; TEMP 36.6; O2SAT 99; BMI 39.1
[2021-10-20 08:51] VITALS: BP 133/90; PULSE 93; RESP 17; TEMP 36.9; O2SAT 99
[2021-10-20 09:43] VITALS: BP 120/83; PULSE 90; RESP 17; TEMP 36.6; O2SAT 99
[2021-10-20 09:44] VITALS: BP 120/83; PULSE 90; RESP 17; TEMP 36.6; O2SAT 99
== END 2021-10-20 08:00 | disposition home or self-care (01) ==
LOC: OPS 08:03
PROVIDERS: PCP Family Medicine; Visit Provider Nurse Practitioner
DX: U07.1 COVID-19 (principal)
CPT/HCPCS: 96365

== ENCOUNTER → 2021-12-15 09:13 | Outpatient (BNVA) | payer MEDICAID, SELFPAY | PROVIDERS: PCP Family Medicine; Visit Provider Podiatrist Foot & Ankle Surgery | DX: S92.502A Displaced unspecified fracture of left lesser toe(s), initial encounter for closed fracture (principal); S92.402A Displaced unspecified fracture of left great toe, initial encounter for closed fracture | CPT/HCPCS: 73630 ==

== ENCOUNTER 2022-03-14 09:46 | Outpatient (CLI) | payer MEDICAID, SELFPAY ==
--- NOTE | 2022-03-14 | XR_ITS ---
WS: [id number] Exam: XR ankle LT min 3V* [id number] Date/Time of Exam: 03/14/2022 12:00 AM Reason For Exam: LEFT ANKLE PAIN Findings: Multiple views of the ankle reveal no fracture or displacements of bone. No soft tissue swelling is present. There are no periosteal reactions noted. The talus and calcaneus are in adequate position. The joint space is smooth and equidistant. XR/XR ankle LT min 3V* [id number] IMPRESSION: Negative left ankle.
--- NOTE | 2022-03-14 | XR_ITS ---
WS: [id number] Exam: XR tibia fibula LT 2V [id number] Date/Time of Exam: 03/14/2022 12:00 AM Reason For Exam: LEFT AKNLE PAIN No fracture or dislocation. Articular relationships are intact. Normal soft tissues. XR/XR tibia fibula LT 2V [id number] IMPRESSION: 1. Negative left tibia and fibula.
== END 2022-03-14 09:47 | disposition home or self-care (01) ==
LOC: RADOUTREAD 03-19 09:48
PROVIDERS: PCP Family Medicine; Visit Provider Nurse Practitioner Family
DX: M25.572 Pain in left ankle and joints of left foot (principal)
CPT/HCPCS: 73590; 73610

== ENCOUNTER → 2022-04-17 13:00 | Outpatient (BNVA) | payer MEDICAID, SELFPAY | PROVIDERS: PCP Family Medicine; Referring Provider Nurse Practitioner Family; Visit Provider Podiatrist Foot & Ankle Surgery | DX: M25.572 Pain in left ankle and joints of left foot (principal); S93.402A Sprain of unspecified ligament of left ankle, initial encounter; X58.XXXA Exposure to other specified factors, initial encounter | CPT/HCPCS: 99213 ==

== ENCOUNTER 2022-04-17 13:59 | Outpatient (CLI) | payer MEDICAID, SELFPAY | END 2022-04-17 14:00 | disposition home or self-care (01) | LOC: SPT 14:29 | PROVIDERS: PCP Family Medicine; Visit Provider Podiatrist Foot & Ankle Surgery | DX: Z46.89 Encounter for fitting and adjustment of other specified devices (principal); S89.92XS Unspecified injury of left lower leg, sequela; X58.XXXS Exposure to other specified factors, sequela | CPT/HCPCS: 97760; 99213; L1902 ==

== ENCOUNTER → 2022-05-25 07:58 | Outpatient (BNVA) | payer MEDICAID, SELFPAY | PROVIDERS: PCP Family Medicine; Visit Provider Podiatrist Foot & Ankle Surgery | DX: X58.XXXA Exposure to other specified factors, initial encounter (principal); S93.402A Sprain of unspecified ligament of left ankle, initial encounter | CPT/HCPCS: 99213; 99214 ==

== ENCOUNTER → 2022-06-30 16:05 | Outpatient (BNVA) | payer MEDICAID, SELFPAY | PROVIDERS: PCP Family Medicine; Visit Provider Obstetrics & Gynecology | DX: Z01.419 Encounter for gynecological examination (general) (routine) without abnormal findings (principal); R23.2 Flushing; R61 Generalized hyperhidrosis; R30.0 Dysuria; E22.1 Hyperprolactinemia | CPT/HCPCS: 81000; 83001; 84146; 84443 ==

== ENCOUNTER 2022-07-06 16:19 | Outpatient (CLI) | payer MEDICAID, SELFPAY ==
--- NOTE | 2022-07-06 16:46 | XR_ITS ---
WS: [id number] Exam: XR KUB [id number] Date/Time of Exam: 07/06/2022 4:49 PM Reason For Exam: LUQ abd pain, constipation No bowel obstruction or free air. Visualized organ margins appear normal. Bony structures are intact. Moderate distention of urinary bladder. Mild levoscoliosis at the thoracolumbar junction. XR/XR KUB [id number] IMPRESSION: 1. No acute abdominal finding.
[2022-07-06 16:47] LABS: Basophils # 0.1 10^3/uL (0.0-0.1); Basophils % 1.3 %; Eosinophils # 0.3 10^3/uL (0.0-0.8); Eosinophils % 4.7 %; Hematocrit 45.5 % (37.0-47.0); Hemoglobin 15.5 g/dL (11.5-15.3); Lymphocytes # 2.1 10^3/uL (0.8-4.8); Lymphocytes % 38.5 %; Mean Corpuscular HGB Conc 34.1 g/dL (30.0-36.0); Mean Corpuscular Hemoglobin 28.9 pg (28.0-34.0); Mean Corpuscular Volume 84.7 fl (81-99); Mean Platelet Volume 9.7 fL (7.4-10.4); Monocytes # 0.6 10^3/uL (0.2-0.9); Neutrophils # 2.33 10^3/uL (1.8-7.7); Neutrophils % 43.6 %; Nucleated Red Blood Cells % 0 %; Platelet Count 303 10^3/cmm (130-400); Red Blood Count 5.37 10^6/uL (4.1-5.3); White Blood Count 5.4 10^3/uL (4.0-10.0)
[2022-07-06 17:25] LABS: Alanine Aminotransferase 20 U/L (0-33); Albumin Level 4.2 g/dL (3.5-5.2); Alkaline Phosphatase 56 U/L (35-105); Anion Gap 14.6 (5-19); Aspartate Amino Transferase 16 U/L (0-32); Blood Urea Nitrogen 10 mg/dL (6-20); Calcium 9.8 mg/dL (8.5-10.5); Carbon Dioxide 25 mmol/L (22-29); Chloride 105 mmol/L (98-107); Globulin 2.7 g/dL (1.3-4.6); Glomerular Filtration Rate 95.8 mL/min (90-130); Glucose 95 mg/dL (65-115); Osmolality Calculated 289 mOsm/kg (285-295); Potassium 4.6 mmol/L (3.5-5.1); Sodium 140 mmol/L (136-145); Total Bilirubin 0.5 mg/dL (0.15-1.2); Total Protein 6.9 g/dL (6.6-8.7)
== END 2022-07-06 16:20 | disposition home or self-care (01) ==
LOC: LAB 16:23
PROVIDERS: Obstetrics & Gynecology; PCP Family Medicine; Visit Provider Family Medicine
DX: Z51.81 Encounter for therapeutic drug level monitoring (principal); E22.1 Hyperprolactinemia; R10.12 Left upper quadrant pain
CPT/HCPCS: 36415; 74018; 80053; 85025; 86141

== ENCOUNTER 2022-08-18 07:12 | Outpatient (CLI) | payer MEDICAID, SELFPAY ==
[2022-08-18] MEDS: iohexol 350 mg/mL 100 mL Btl PO (07:20)
--- NOTE | 2022-08-18 08:00 | CT_ITS ---
WS: [id number] CT ABDOMEN PELVIS TECHNIQUE: Contrast-enhanced CT of the abdomen and pelvis with coronal and sagittal reformatted image s. CLINICAL INFORMATION: LUQ abdominal pain COMPARISON: CT 2017 DLP: 1423.[address] scans at [facility] use at least one of these dose optimization techniques: automated e xposure control; mA and/or kV adjustment per patient size (includes targeted exams where dose is matc hed to clinical indication); or iterative reconstruction. FINDINGS: Lung bases are well aerated. Diffuse fatty infiltration liver. Normal portal vein and splenic vein. S pleen measures approximately 12.3 cm [id number] upper limits of normal although unchanged since 7. Normal GE junction. Fluid distended stomach. Adrenal glands are normal. Normal renal parenchymal enhancement. No hydronephrosis. Cortical scarring with lobulation LEFT kidney. Normal caliber abdominal aorta. Sigmoid colon constipation. Mild diffuse pancolonic constipation. No free fluid in the pelvis. Tiny fat-containing umbilical hernia. CT/CT abdomen pelvis w con* [id number] IMPRESSION: 1. Mild diffuse fatty infiltration of the liver. 2. Spleen measures 12.3 cm [id number] upper limits of normal and unchanged s [place]inton 2016. 3. No hydronephrosis in either kidney. Normal renal parenchymal enhancement. L obulation LEFT kidney with cortical scarring. 4. No free fluid in the abdomen or pelvis. 5. Mild colonic constipation. 6. No acute abdominal or pelvic findings.
[2022-08-18] MEDS: iohexol 350 mg/mL 100 mL Btl IV (08:48)
== END 2022-08-18 07:13 | disposition home or self-care (01) ==
PROVIDERS: PCP Family Medicine; Visit Provider Family Medicine
DX: R10.12 Left upper quadrant pain (principal); K76.0 Fatty (change of) liver, not elsewhere classified; Q63.1 Lobulated, fused and horseshoe kidney
CPT/HCPCS: 74177

== ENCOUNTER 2022-08-28 14:15 | Emergency (ER) | payer MEDICAID, SELFPAY ==
[2022-08-28 14:42] VITALS: BP 119/74; PULSE 99; RESP 13; TEMP 36.8; O2SAT 97; BMI 34.7
--- NOTE | 2022-08-28 14:56 | ED_ITS ---
HPI - Dental/Oral General: Chief complaint: Dental/Oral Stated complaint: tooth pain Time Seen by Provider: 08/28/22 14:19 History of Present Illness: Patient is a 32-year-old female comes to the ED with dental pain. She is been having this pain now for couple weeks. She has seen her dentist multiple times for dental pain. Pain is located in the top right molar. She currently rates the pain a 6 out of 10. pain worsens when she eats or drinks any cold food or liquids. She is currently taking hydrocodone to help with the pain and is is currently on her second round of antibiotics. Her dentist has referred her to an oral surgeon and her appoint with them is in mid September. Denies any fevers, facial swelling or any other symptoms. Associated symptoms: Denies fever(s) or odynophagia Review of Systems Const: Denies: fever(s), chills or fatigue Eyes: Denies: change in vision or eye discomfort ENMT: Reports: dental pain; Denies: throat pain, odynophagia, nasal discharge or nasal congestion Card: Denies: chest pain, palpitations, edema, swelling of feet/ankles, dyspne a on exertion or orthopnea Resp: Denies: dyspnea, productive cough or non-productive cough GI: Denies: abdominal pain, nausea, vomiting, diarrhea, constipation or hematochezia : Denies: flank pain, dysuria or hematuria Musc: Denies: neck pain, back pain or extremity swelling Skin/Breast: Denies: rash or new lesions Neuro: Denies: headache(s), numbness in extremities or weakness in extremities PFS ED PFSH: Medical History Hyperprolactinemia Diagnosed in her 20s and 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 Nick in [facility]. She does not think she is on any medication. Hypothyroidism Diagnosed in her 20s and managed on medication by sand mill grinder Dr. Nick in [facility] No pertinent past medical history Denies diabetes, asthma, hypertension, seizures, DVT/PE PCP: Dr. Mejias Obsessive compulsive disorder , Tourette's disease--managed by medication by psychiatrist Dr. Martin in [place]. Surgical History Hx of bilateral breast reduction surgery (~07/2014) Hx of tonsillectomy (~1999) Family History Mother Thyroid condition thyroid cancer Hypertension Father Diabetes Thyroid condition Family/Other Colon cancer maternal great grandmother Grandmother Heart disease maternal Hypertension materal Grandfather Hypertension maternal Denies family history of Ovarian cancer Hyperlipidemia Breast cancer Uterine cancer Stroke Social History Smoking and tobacco status: never smoked Alcohol intake: never Physical Exam Const: COMMON NORMALS: no acute distress, patient oriented x3 and alert GENERAL APPEARANCE: cooperative and comfortable HENMT: COMMON NORMALS: normocephalic HEAD & SCALP: normocephalic MOUTH: Normal oral and palatal mucosa present THROAT: posterior oropharynx normal and uvula midline OTHER: Dental exam findings are benign. Neck/C-Spine: COMMON NORMALS: supple GENERAL: Yes normal visual inspection Resp: COMMON NORMALS: normal respiratory effort, No retractions, No use of accessory muscles and clear to auscultation bilaterally AUSCULTATION: clear to auscultation bilaterally Cardio: COMMON NORMALS: regular rate, regular rhythm, S1 normal heart sound present, S2 normal heart sound present, No gallops present (Cardio), No clicks present (Cardio), No murmurs present (Cardio) and Peripheral pulses 2+ throughout RATE: regular rate RHYTHM: regular rhythm HEART SOUNDS: S1 normal heart sound present and S2 normal heart sound present PERIPHERAL PULSES: Peripheral pulses 2+ throughout GI: COMMON NORMALS: Normal to inspection, nondistended, normoactive bowel sounds present, Soft to palpation, non-tender and no masses PALPATION: Yes Soft to palpation : COMMON NORMALS: Yes no CVA tenderness BLADDER/KIDNEY EXAM: Yes no CVA tenderness Back/Pelvis: COMMON NORMALS: no CVA tenderness Extremity: COMMON NORMALS: normal to inspection Neuro: COMMON NORMALS: patient oriented x3 SENSORIUM/ORIENTATION: Yes alert GAIT: Yes Normal gait present Skin: GENERAL SKIN EXAM: dry skin Course Vital Signs: Vital signs: Vital Signs Temperature 98.3 F 08/28/22 14:42 Pulse Rate 99 08/28/22 14:42 Respiratory Rate 16 08/28/22 15:33 Blood Pressure 119/74 08/28/22 14:42 Pulse Oximetry 97 08/28/22 14:42 Oxygen Delivery Me thod 08/28/22 14:42 MDM - Dental/Oral Medical Decision Making Patient is a 32-year-old female comes to the ED with dental pain. She said it for several weeks and has seen a dentist multiple times for dental pain and she has been referred to an oral surgeon for further evaluation. She has a prescription for hydrocodone that she takes for pain and is currently on her second round of antibiotics. Exam is benign and patient appears in no acute distress. She was given a dose of IM morphine to help with pain and was stable for discharge home. She was told to follow-up with her oral surgeon at her scheduled appointment in September. Return ED precautions given. Patient understood and agreed with plan. Discharge Plan Discharge Patient Disposition: Home Clinical Impression: Toothache Condition: Stable Prescriptions: No Action polyethylene glycol 3350 17 gram/dose powder 17 g PO BID PRN (DME) ASO to left See Rx Instructions .Route .MEDSUPPLY Qty: 1 0RF Rx Instructions: As directed Premphase 0.625 mg (14)/ 0.625mg-5mg(14) tablet 1 tab PO DAILY Qty: 28 11RF lactulose 10 gram/15 mL (15 mL) solution 20 g PO QID PRN (Reason: constipation) Qty: 600 0RF Vitamin D3 Complete 5 mg clomipramine 150 mg DAILY Synthroid 125 mcg Tablet 125 mcg PO DAILY Ativan 1 mg Tablet 1 mg PO BID PRN (Reason: Anxiety) buspirone 15 mg BID propranolol 10 mg Tablet 10 mg PO BID haloperidol 5 mg BID methocarbamol 750 mg tablet 750 mg PO Q8H Qty: 20 0RF hydroxyzine HCl 25 mg tablet 25 mg PO BID Reglan 10 mg tablet 10 mg PO Q6H PRN (Reason: headache) Qty: 5 0RF Rx Instructions: in combination with tylenol and benadryl Celebrex 100 mg capsule 100 mg PO BID PRN (Reason: pain) Qty: 20 0RF cyclobenzaprine 10 mg tablet 10 mg PO BID PRN (Reason: muscle spasm) Qty: 20 0RF Discharge Orders: Discharge ED (Routine); Ordered 08/28/22 Ordered By: Lamberto Kwon Referrals: Lamberto Mejias MD [Primary Care Provider] - Discharge Diet: Regular Discharge Activity: Increase activity as tolerated Patient Instructions: Toothache (ED) Activity Restrictions/Additional Instructions: Follow-up with dentist for further management of dental pain. Continue taking previously prescribed medications. Return to the ER or your medical provider if condition worsens. Please read and understand discharge instructions. Thank you for choosing [facility] for your healthcare needs today. Please realize this is an emergency room and that we are providing you with a medical screening exam and this may not be complete and all inclusive of all the testing and or work up that you may need to determine your ailment or severity of your illness. It is very important that you follow up as instructed or that you return to the Emergency Department should you have concerns or if your condition changes or worsens in any way. Coding Level of Care Code ED Export Freight Specialist for Alexei Zhao Exam Comprehensive
[2022-08-28 15:33] VITALS: RESP 16
[2022-08-28] MEDS: morphine 4 mg/mL SDV 1 mL IM (15:33)
== END 2022-08-28 15:31 | disposition home or self-care (01) ==
PROVIDERS: Emergency Provider Physician Assistant; PCP Family Medicine
DX: K08.89 Other specified disorders of teeth and supporting structures (principal)
CPT/HCPCS: 96372; 99284; J2270

== ENCOUNTER → 2022-09-23 13:17 | Outpatient (BNVA) | payer MEDICAID, SELFPAY | PROVIDERS: PCP Family Medicine; Visit Provider Clinical Nurse Specialist Adult Health | DX: R10.32 Left lower quadrant pain (principal) | CPT/HCPCS: 81000; 87086 ==

== ENCOUNTER 2022-12-03 10:02 | Emergency (ER) | payer MEDICAID, SELFPAY ==
[2022-12-03 10:05] VITALS: BP 133/95; PULSE 103; RESP 14; TEMP 36.9; O2SAT 96; BMI 34.6
[2022-12-03 11:29] LABS: Basophils # 0.1 10^3/uL (0.0-0.1); Basophils % 1.3 %; Eosinophils # 0.4 10^3/uL (0.0-0.8); Eosinophils % 8.6 %; Hematocrit 40.8 % (37.0-47.0); Hemoglobin 13.6 g/dL (11.5-15.3); Lymphocytes # 1.6 10^3/uL (0.8-4.8); Lymphocytes % 34.8 %; Mean Corpuscular HGB Conc 33.3 g/dL (30.0-36.0); Mean Corpuscular Hemoglobin 28.8 pg (28.0-34.0); Mean Corpuscular Volume 86.3 fl (81-99); Mean Platelet Volume 9.3 fL (7.4-10.4); Monocytes # 0.4 10^3/uL (0.2-0.9); Monocytes % 9.5 %; Neutrophils # 2.09 10^3/uL (1.8-7.7); Neutrophils % 45.2 %; Nucleated Red Blood Cells % 0 %; Platelet Count 251 10^3/cmm (130-400); Red Blood Count 4.73 10^6/uL (4.1-5.3); Red Cell Distribution Width 12.5 % (12.1-15.1); White Blood Count 4.6 10^3/uL (4.0-10.0)
[2022-12-03 11:44] LABS: Alanine Aminotransferase 22 U/L (0-33); Albumin Level 4.1 g/dL (3.5-5.2); Alkaline Phosphatase 50 U/L (35-105); Anion Gap 11.3 (5-19); Aspartate Amino Transferase 16 U/L (0-32); Blood Urea Nitrogen 14 mg/dL (6-20); Calcium 9.2 mg/dL (8.5-10.5); Carbon Dioxide 26 mmol/L (22-29); Chloride 105 mmol/L (98-107); Globulin 2.1 g/dL (1.3-4.6); Glomerular Filtration Rate 95.8 mL/min (90-130); Glucose 103 mg/dL (65-115); Osmolality Calculated 287 mOsm/kg (285-295); Potassium 4.3 mmol/L (3.5-5.1); Sodium 138 mmol/L (136-145); Total Bilirubin 0.3 mg/dL (0.15-1.2); Total Protein 6.2 g/dL (6.6-8.7)
[2022-12-03] MEDS: sodium chloride 0.9% 1,000 ML 999 ML IV (12:17)
[2022-12-03] MEDS: ketorolac 30 mg/mL INJ 15 MG IVP (12:19)
[2022-12-03] MEDS: diphenhydrAMINE 50 mg/mL SDV 1mL 25 MG IVP (12:21)
[2022-12-03] MEDS: metoclopramide 5 mg/mL SDV 2 mL 10 MG IVP (12:22)
--- NOTE | 2022-12-03 12:55 | W.ED.HA ---
HPI - Headache General: Chief Complaint: Headache Stated Complaint: headache Time Seen by Provider: 12/03/22 10:17 History of Present Illness: Patient is in today for headache x2 days. She reports that yesterday she woke up with a bad headache and she took some Excedrin. She reports that her headache this was not improving so she went ahead and went to her doctor and was treated with Toradol and Zofran. She reports that after that she just felt exhausted and tired and generally weak. She reports that her headache is persisting at a 4 on a 0-to-10 scale. She did take some more Excedrin this morning but is just feeling generally terrible. She is nauseated but has not been vomiting. She denies any possibility of . She does report this feels like her characteristic headache that she typically gets she denies any neurologic changes. Associated symptoms: Deny chest pain, fever(s), lightheadedness, nausea, syncope or vomiting Review of Systems Const: Denies: fever(s), chills or body aches Eyes: Denies: change in vision or blurry vision ENMT: Denies: throat pain Card: Denies: chest pain, palpitations, irregular heart rhythm, lightheadedness or syncope Resp: Denies: dyspnea, productive cough or non-productive cough GI: Denies: abdominal pain, nausea or vomiting : Denies: flank pain, difficulty voiding, dysuria, urinary frequency, urinary urgency or urinary hesitancy Musc: Denies: neck pain or back pain Neuro: Denies: headache(s), numbness in extremities or weakness in extremities PFSH ED PFSH: Medical History Hyperprolactinemia Diagnosed in her 20s and 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 Nick in [facility]. She does not think she is on any medication. Hypothyroidism Diagnosed in her 20s and managed on medication by [employer] hydraulic press operator Dr. Nick in [facility] Obsessive compulsive disorder , Tourette's disease--managed by medication by psychiatrist Dr. Martin in [place]. Surgical History Hx of bilateral breast reduction surgery (~07/2014) Hx of tonsillectomy (~1999) Family History Mother Thyroid condition thyroid cancer Hypertension Father Diabetes Thyroid condition Family/Other Colon cancer maternal great grandmother Grandmother Heart disease maternal Hypertension materal Grandfather Hypertension maternal Denies family history of Ovarian cancer Hyperlipidemia Breast cancer Uterine cancer Stroke Social History Smoking and tobacco status: never smoked Alcohol intake: never Physical Exam Const: COMMON NORMALS: no acute distress, patient oriented x3 and alert GENERAL APPEARANCE: cooperative ORIENTATION/CONSCIOUSNESS: Yes awake, Yes oriented to person, Yes oriented to place and Yes oriented to time HENMT: THROAT: posterior oropharynx normal Eye: COMMON NORMALS: Equal, round and reactive pupils present, EOMs intact bilaterally and conjunctivae normal GENERAL EYE: appearance normal, both eyes and all related structures ALIGNMENT: Yes alignment normal CONJUNCTIVA: Yes conjunctivae normal SCLERA: sclerae normal PUPIL: Yes Equal, round and reactive pupils present Neck/C-Spine: COMMON NORMALS: full ROM Resp: COMMON NORMALS: normal respiratory effort, No retractions, No use of accessory muscles and clear to auscultation bilaterally EFFORT & INSPECTION: Yes symmetric chest movement AUSCULTATION: clear to auscultation bilaterally Cardio: COMMON NORMALS: regular rate, regular rhythm, S1 normal heart sound present and S2 normal heart sound present RATE: regular rate RHYTHM: regular rhythm HEART SOUNDS: S1 normal heart sound present and S2 normal heart sound present GI: COMMON NORMALS: Normal to inspection, nondistended, normoactive bowel sounds present, Soft to palpation, non-tender, No hepatosplenomegaly present, no masses and no bruits INSPECTION: Yes normal to inspection PALPATION: Yes Soft to palpation and Yes No hepatosplenomegaly present : COMMON NORMALS: Yes no CVA tenderness BLADDER/KIDNEY EXAM: Yes no CVA tenderness Back/Pelvis: COMMON NORMALS: no CVA tenderness Neuro: COMMON NORMALS: patient oriented x3 SENSORIUM/ORIENTATION: Yes alert, Yes oriented to person, Yes oriented to place and Yes oriented to time Psych: COMMON NORMALS: cooperative Course Vital Signs: Vital signs: Vital Signs Temperature 98.4 F 12/03/22 10:05 Pulse Rate 79 12/03/22 13:13 Respiratory Rate 16 12/03/22 13:13 Blood Pressure 120/93 12/03/22 13:13 Pulse Oximetry 96 12/03/22 13:13 Oxygen Delivery Me thod 12/03/22 13:13 MDM - Headache Medical Decision Making Labs are unremarkable. Physical exam is benign. Patient does appear to be in pain and wants the room dark. IV fluid with Benadryl, Reglan, Toradol given. Reevaluated patient after fluid infused and patient reports pain is down to a 1 on a 0-to-10 scale. Reports feeling much improved. Will discharge patient home. She reports that she would like to be discharged to home. Her dad is here with her to take her. Advised her to just rest and make sure she is staying well-hydrated at home. Follow-up with primary care provider as needed. Return to the ER for any new or worsening symptoms. Lab Data 12/03/22 11:20 12/03/22 11:20 Laboratory Results WBC 4.6 10^3/uL (4.0-10.0) 12/03/22 11:20 RBC 4.73 10^6/uL (4.1-5.3) 12/03/22 11:20 Hgb 13.6 g/dL (11.5-15.3) 12/03/22 11:20 Hct 40.8 % (37.0-47.0) 12/03/22 11:20 MCV 86.3 fl (81-99) 12/03/22 11:20 MCH 28.8 pg (28.0-34.0) 12/03/22 11:20 MCHC 33.3 g/dL (30.0-36.0) 12/03/22 11:20 RDW 12.5 % (12.1-15.1) 12/03/22 11:20 Plt Count 251 10^3/cmm (130-400) 12/03/22 11:20 MPV 9.3 fL (7.4-10.4) 12/03/22 11:20 Neut % (Auto) 45.2 % 12/03/22 11:20 Lymph % (Auto) 34.8 % 12/03/22 11:20 [place] % (Auto) 9.5 % 12/03/22 11:20 Eos % (Auto) 8.6 % 12/03/22 11:20 Baso % (Auto) 1.3 % 12/03/22 11:20 Neut # (Auto) 2.09 10^3/uL (1.8-7.7) 12/03/22 11:20 Lymph # (Auto) 1.6 10^3/uL (0.8-4.8) 12/03/22 11:20 [place] # (Auto) 0.4 10^3/uL (0.2-0.9) 12/03/22 11:20 Eos # (Auto) 0.4 10^3/uL (0.0-0.8) 12/03/22 11:20 Baso # (Auto) 0.1 10^3/uL (0.0-0.1) 12/03/22 11:20 Nucleated RBC % (auto) 0 % 12/03/22 11:20 Nucleated RBCs # 0.0 /100WBC 12/03/22 11:20 Sodium 138 mmol/L (136-145) 12/03/22 11:20 Potassium 4.3 mmol/L (3.5-5.1) 12/03/22 11:20 Chloride 105 mmol/L (98-107) 12/03/22 11:20 Carbon Dioxide 26 mmol/L (22-29) 12/03/22 11:20 Anion Gap 11.3 (5-19) 12/03/22 11:20 BUN 14 mg/dL (6-20) 12/03/22 11:20 Creatinine 0.7 mg/dL (0.5-0.9) 12/03/22 11:20 GFR Calculation 95.8 mL/min (90-130) 12/03/22 11:20 Glucose 103 mg/dL (65-115) 12/03/22 11:20 Calculated Osmolality 287 mOsm/kg (285-295) 12/03/22 11:20 Calcium 9.2 mg/dL (8.5-10.5) 12/03/22 11:20 Total Bilirubin 0.3 mg/dL (0.15-1.2) 12/03/22 11:20 AST 16 U/L (0-32) 12/03/22 11:20 ALT 22 U/L (0-33) 12/03/22 11:20 Alkaline Phosphatase 50 U/L (35-105) 12/03/22 11:20 Total Protein 6.2 g/dL (6.6-8.7) L 12/03/22 11:20 Albumin 4.1 g/dL (3.5-5.2) 12/03/22 11:20 Globulin 2.1 g/dL (1.3-4.6) 12/03/22 11:20 Urine HCG, Qual Negative (Negative) 12/03/22 13:08 Discharge Plan Discharge Patient Disposition: Home Clinical Impression: Migraine Condition: Stable Prescriptions: No Action polyethylene glycol 3350 17 gram/dose powder 17 g PO BID PRN (Reason: Constipation) (DME) ASO to left See Rx Instructions .Route .MEDSUPPLY Qty: 1 0RF Rx Instructions: As directed Premphase 0.625 mg (14)/ 0.625mg-5mg(14) tablet 1 tab PO DAILY Qty: 28 11RF levothyroxine [Synthroid] 125 mcg Tablet See Rx Instructions .ROUTE .COMPLEX Rx Instructions: 125 mcg orally Wednesday - Wednesday and 250 mg on Wednesday lorazepam [Ativan] 1 mg Tablet 1 mg PO TID PRN (Reason: Anxiety) propranolol 10 mg Tablet 10 mg PO BID hydroxyzine HCl 25 mg tablet 25 mg PO BID ziprasidone HCl 40 mg capsule 40 mg PO BID clomipramine 50 mg capsule 100 mg PO BEDTIME buspirone 15 mg tablet 15 mg PO BID Vitamin D3 10 mcg (400 unit) Capsule 10 mcg PO DAILY Evening [place] 500 mg Capsule 500 mg PO BID Rx Instructions: give with meal/snack Discharge Orders: Discharge ED (Routine); Ordered 12/03/22 Ordered By: Maxine Kennedy Referrals: Lamberto Mejias MD [Primary Care Provider] - Discharge Diet: Usual diet Discharge Activity: Resume usual activity Patient Instructions: Headache - Migraine (Adult) Activity Restrictions/Additional Instructions: Make sure that you are staying well-hydrated at home. You may use Excedrin as needed as directed. Follow-up with primary care provider as needed. Return to the ER for any new or worsening symptoms Stand Alone Forms: Work/School Release Coding Level of Care Code ED Youth Development Professional for Alexei Zhao
[2022-12-03 13:13] VITALS: BP 120/93; PULSE 79; RESP 16; O2SAT 96
[2022-12-03 14:35] LABS: Add Urine Microscopic? NO; Charge for UA Resulting for Rev
[2022-12-03 14:45] LABS: Bilirubin Urine Neg (Negative); Blood Urine Neg (Negative); Glucose Urine UA Norm (Normal); Ketones Urine Negative (Negative); Leukocyte Esterase Urine Negative (Negative); Nitrate Urine Negative (Negative); Protein Urine Neg (Negative); Specific Gravity, Urine 1.015 (1.005-1.030); Urine Appearance Clear (CLEAR); Urine Color Light yellow (Yellow); Urobilinogen Urine Neg (Negative); pH Urine 6 (5-7)
== END 2022-12-03 13:25 | disposition home or self-care (01) ==
PROVIDERS: Emergency Provider Nurse Practitioner Family; PCP Family Medicine
DX: G43.009 Migraine without aura, not intractable, without status migrainosus (principal)
CPT/HCPCS: 80053; 81003; 81025; 85025; 96361; 96374; 96375; 99284; J1200; J1885; J2765; J7030

== ENCOUNTER → 2023-08-05 11:39 | Outpatient (BNVA) | payer MEDICAID, SELFPAY | PROVIDERS: PCP Family Medicine; Visit Provider Family Medicine | DX: N92.0 Excessive and frequent menstruation with regular cycle (principal); E03.9 Hypothyroidism, unspecified; E22.1 Hyperprolactinemia; Z51.81 Encounter for therapeutic drug level monitoring; R42 Dizziness and giddiness | CPT/HCPCS: 80053; 83550; 84466; 85025 ==

== ENCOUNTER → 2023-08-12 09:40 | Outpatient (BNVA) | payer MEDICAID, SELFPAY | PROVIDERS: PCP Family Medicine; Visit Provider Obstetrics & Gynecology | DX: N92.0 Excessive and frequent menstruation with regular cycle (principal) | CPT/HCPCS: 84146; 84443; 84702 ==

== ENCOUNTER → 2023-08-23 09:12 | Outpatient (BNVA) | payer MEDICAID, SELFPAY | PROVIDERS: PCP Family Medicine; Visit Provider Obstetrics & Gynecology | DX: N93.9 Abnormal uterine and vaginal bleeding, unspecified (principal) | CPT/HCPCS: 76830 ==

== ENCOUNTER 2023-09-27 05:45 | Emergency (ER) | payer MEDICAID, SELFPAY ==
[2023-09-27 05:51] VITALS: BP 150/90; PULSE 84; RESP 16; TEMP 36.5; O2SAT 98; BMI 36.6
--- NOTE | 2023-09-27 06:18 | ED_ITS ---
HPI - Abdominal Pain 2 General: Chief Complaint: Abdominal Pain Stated Complaint: abd pain Time Seen by Provider: 09/27/23 05:54 Source: patient Mode of arrival: ambulatory History of Present Illness: 33-year-old female presents to the [facility] ency room complaining of epigastric abdominal discomfort. She states worse when she eats or drinks anything however she still has good appetite. She gets nauseous at times she has not had vomiting denies any hematochezia or melena. She has not noticed a particular food that exacerbates or relieves. She has noted when she takes Tums at night as it helps her to get to sleep. No previous abdominal surgeries she denies dysuria urgency or frequency she has been a little bit constipated has not had a bowel movement for the last couple of days. MD elicited complaint: abdominal pain Pertinent past history: other (Recently tapered off of Haldol) Onset (ago): day(s) Quality: aching Exacerbating factors: nothing Relieving factors: nothing Associated Symptoms: Reports nausea; Denies anorexia, belching, bloating, change in bowel habits, change in stool character, chills, coffee ground emesis, constipation, GI cramping, diarrhea, dyspepsia, dysuria, excessive flatus, fever(s), heartburn, hematochezia, hematuria, hematemesis, fecal incontinence, loose stools, melena, poor appetite, syncope and vomiting Review of Systems 2 Const: Denies: fever(s) or chills Card: Denies: chest pain or syncope Resp: Denies: dyspnea GI: Reports: abdominal pain and nausea; Denies: vomiting, hematemesis, coffee ground emesis, heartburn, diarrhea, constipation, bloating, GI cramping, belching, excessive flatus, fecal incontinence, change in bowel habits, change in stool character, hematochezia or melena : Denies: dysuria, urinary frequency, urinary urgency or hematuria Musc: Denies: neck pain or back pain Skin/Breast: Denies: rash PFS ED 2 PFSH: Medical History Obsessive compulsive disorder OCD, Tourette's disease--managed by medication by psychiatrist Dr. Martin in [place]. Hypothyroidism Diagnosed in her 20s and managed on medication by golf superintendent Dr. Nick in [facility] Hyperprolactinemia Diagnosed in her 20s and managed by golf superintendent Dr. Nick in [facility]. She does not think she is on any medication. Surgical History Hx of tonsillectomy (~1999) Hx of bilateral breast reduction surgery (~07/2014) Family History Mother Thyroid disease thyroid cancer Hypertension Father Diabetes Thyroid disease Family/Other Colon cancer maternal great grandmother Grandmother Heart disease maternal Hypertension materal Grandfather Hypertension maternal Denies family history of Ovarian cancer Hyperlipidemia Breast cancer Uterine cancer Stroke Social History Smoking and tobacco/nicotine status: never used tobacco/nicotine Alcohol intake: never Substance/Drug Use: never Physical Exam 2 Const: COMMON NORMALS: no acute distress GENERAL APPEARANCE: cooperative and comfortable ORIENTATION/CONSCIOUSNESS: Yes awake, Yes oriented to person, Yes oriented to place and Yes oriented to time HENMT: COMMON NORMALS: normocephalic, atraumatic and hearing grossly normal bilaterally HEAD & SCALP: normocephalic and atraumatic Resp: COMMON NORMALS: normal respiratory effort, No retractions, No use of accessory muscles and clear to auscultation bilaterally AUSCULTATION: clear to auscultation bilaterally Cardio: COMMON NORMALS: regular rate, regular rhythm and No murmurs present (Cardio) RATE: regular rate RHYTHM: regular rhythm GI: COMMON NORMALS: Soft to palpation and No hepatosplenomegaly present A USCULTATION: Yes normoactive bowel sounds PALPATION: Yes Soft to palpation, No Tenderness to palpation present (GI), No Guarding due to palpation present (GI) and Yes No hepatosplenomegaly present Extremity: COMMON NORMALS: normal to inspection, capillary refill normal, no clubbing, cyanosis or edema, no calf tenderness and no pedal edema Neuro: SENSORIUM/ORIENTATION: Yes oriented to person, Yes oriented to place and Yes oriented to time Skin: COMMON NORMALS: no rashes or lesions noted GENERAL SKIN EXAM: no rashes or lesions noted Course 2 Vital Signs: Vital signs: Vital Signs Temperature 97.7 F 09/27/23 05:51 Pulse Rate 84 12/18/23 05:51 Respiratory Rate 16 09/27/23 05:51 Blood Pressure 150/90 09/27/23 05:51 Pulse Oximetry 98 09/27/23 05:51 Oxygen Delivery Me thod Room Air 09/27/23 05:51 MDM - Abdominal Pain Medical Decision Making Moderate constipation. She also has symptoms that are suggestive of dyspepsia/GERD. Finally she has some neutropenia. Her neutrophil count has run low for some time but not this low in the past. She is not having a fever or other signs of infection at this point. Her abdominal exam is benign. Will discharge her home advised her to return to the emergency room if she has any fever or signs of infection. Should follow-up with her primary care doctor for further evaluation including repeat CBC within the next week. Patient given lactulose and pantoprazole for her constipation and dyspepsia/GERD. Medical Records I reviewed the patient's medical records. Lab Data I reviewed the patient's lab results. 09/27/23 06:08 09/27/23 06:08 Labs/Radiology: Laboratory Results WBC 4.11 10^3/uL (3.29-11.43) 09/27/23 06:08 RBC 5.36 10^6/uL (3.85-5.65) 09/27/23 06:08 Hgb 15.60 g/dL (11.27-16.99) 09/27/23 06:08 Hct 44.9 % (36-47) 09/27/23 06:08 MCV 83.8 fl (85-98) L 09/27/23 06:08 MCH 29.1 pg (27-33) 09/27/23 06:08 MCHC 34.7 g/dL (30-55) 09/27/23 06:08 RDW 12.8 % (12.1-15.1) 09/27/23 06:08 Plt Count 347 10^3/cmm (157-399) 09/27/23 06:08 MPV 9.5 fL (7.4-10.4) 09/27/23 06:08 Neut % (Auto) 17.1 % 09/27/23 06:08 Lymph % (Auto) 58.6 % 09/27/23 06:08 [place] % (Auto) 13.6 % 09/27/23 06:08 Eos % (Auto) 8.5 % 09/27/23 06:08 Baso % (Auto) 1.7 % 09/27/23 06:08 Neut # (Auto) 0.70 10^3/uL (1.8-7.7) L* 09/27/23 06:08 Lymph # (Auto) 2.4 10^3/uL (0.8-4.8) 09/27/23 06:08 [place] # (Auto) 0.6 10^3/uL (0.2-0.9) 09/27/23 06:08 Eos # (Auto) 0.4 10^3/uL (0.0-0.8) 09/27/23 06:08 Baso # (Auto) 0.1 10^3/uL (0.0-0.1) 09/27/23 06:08 Nucleated RBC % (auto) 0 % 09/27/23 06:08 Nucleated RBCs # 0.0 /100WBC 09/27/23 06:08 Sodium 141 mmol/L (136-145) 09/27/23 06:08 Potassium 4.3 mmol/L (3.5-5.1) 09/27/23 06:08 Chloride 104 mmol/L (98-107) 09/27/23 06:08 Carbon Dioxide 27 mmol/L (22-29) 09/27/23 06:08 Anion Gap 14.3 (5-19) 09/27/23 06:08 BUN 13 mg/dL (6-20) 09/27/23 06:08 Creatinine 0.9 mg/dL (0.5-0.9) 09/27/23 06:08 GFR Calculation 71.3 mL/min (90-130) L 09/27/23 06:08 Glucose 97 mg/dL (65-115) 09/27/23 06:08 Calculated Osmolality 292 mOsm/kg (285-295) 09/27/23 06:08 Calcium 9.5 mg/dL (8.5-10.5) 09/27/23 06:08 Total Bilirubin 0.6 mg/dL (0.15-1.2) 09/27/23 06:08 AST 18 U/L (0-32) 09/27/23 06:08 ALT 22 U/L (0-33) 09/27/23 06:08 Alkaline Phosphatase 54 U/L (35-105) 09/27/23 06:08 Total Protein 7.1 g/dL (6.6-8.7) 09/27/23 06:08 Albumin 4.5 g/dL (3.5-5.2) 09/27/23 06:08 Globulin 2.6 g/dL (1.3-4.6) 09/27/23 06:08 Lipase 22 U/L (13-60) 09/27/23 06:08 HCG, Qual Negative (Negative) 09/27/23 06:00 Urine Color Yellow (Yellow) 09/27/23 06:00 Urine Appearance Cloudy (CLEAR) A 09/27/23 06:00 Urine pH 6 (5-7) 09/27/23 06:00 Ur Specific [place] 1.025 (1.005-1.030) 09/27/23 06:00 Urine Protein Neg (Negative) 09/27/23 06:00 Urine Glucose (UA) Norm (Normal) 09/27/23 06:00 Urine Ketones Negative (Negative) 09/27/23 06:00 Urine Blood Neg (Negative) 09/27/23 06:00 Urine Nitrate Negative (Negative) 09/27/23 06:00 Urine Bilirubin Neg (Negative) 09/27/23 06:00 Urine Urobilinogen Norm mg/dL (Negative) 09/27/23 06:00 Ur Leukocyte Esterase Negative (Negative) 09/27/23 06:00 Urine RBC 0-4 /hpf (0-2) H 09/27/23 06:00 Urine WBC 0-4 /hpf (0-5) H 09/27/23 06:00 Ur Squamous Epith Cells 0-4 /hpf (0-5) H 09/27/23 06:00 Amorphous Sediment Not Reportable 09/27/23 06:00 Urine Bacteria 1+ /hpf (NONE) H 09/27/23 06:00 Urine Mucus 1+ /hpf 09/27/23 06:00 All radiology interpretation(s) finalized by discharge Discharge Plan Discharge Patient Disposition: Home Clinical Impression: Gastroesophageal reflux disease, Neutropenia Condition: Stable Prescriptions: New Protonix 40 mg tablet,delayed release (DR/EC) 40 mg PO BID 10 Days Qty: 40 0RF Rx Instructions: Twice daily for 10 days then daily lactulose 10 gram/15 mL (15 mL) solution 20 g PO Q2H 1 Days Qty: 360 0RF Rx Instructions: until desired laxative effect No Action levothyroxine [Synthroid] 125 mcg Tablet 125 mcg PO QAM lorazepam [Ativan] 1 mg Tablet 1 mg PO BID MDD 3 tabs hydroxyzine HCl 25 mg tablet 25 mg PO BID clomipramine 50 mg capsule 100 mg PO BEDTIME buspirone 15 mg tablet 15 mg PO BID evening primrose oil [Evening [place]] 500 mg Capsule 500 mg PO BID Rx Instructions: give with meal/snack propranolol 10 mg tablet 10 mg PO BID Advil PM 200-38 mg Tablet 2 - 3 tab PO BEDTIME PRN (Reason: Sleep) melatonin 5 mg Tablet 10 mg PO BEDTIME PRN (Reason: Sleep) Premphase 0.625 mg (14)/ 0.625mg-5mg(14) tablet 1 tab PO QAM Discharge Orders: Discharge ED (Routine); Ordered 09/27/23 Ordered By: Juan Francisco Fink Referrals: Lamberto Mejias MD [Primary Care Provider] - Discharge Diet: Usual diet Discharge Activity: Resume usual activity Patient Instructions: Opioid Safety, Pain Management Activity Restrictions/Additional Instructions: Thank you for choosing [facility] for your healthcare needs today. Please realize this is an emergency room and that we are providing you with a medical screening exam and this may not be complete and all inclusive of all the testing and or work up that you may need to determine your ailment or severity of your illness. It is very important that you follow up as instructed or that you return to the Emergency Department should you have concerns or if your condition changes or worsens in any way. You are seen today for some abdominal discomfort. You are moderately constipated use lactulose every 2 hours until desired results achieved. Also recommend to start Protonix 1 tablet twice daily for 10 days then once daily. Your lab work today showed neutropenia (low white blood cells). You should follow-up with your primary care doctor to have this further evaluated. If you develop fever or any signs of infection you should be reevaluated immediately. Coding Level of Care Code ED Machine Rigger for Alexei Zhao
--- NOTE | 2023-09-27 06:53 | XR_ITS ---
WS: [id number] ABDOMEN 1 VIEW(S) HISTORY: Abdominal discomfort/constipation COMPARISON: 07/06/2022 Normal bowel gas pattern. Mildly inspissated fecal material. No obstructive pattern. No calcification No bone abnormality. IMPRESSION: Mild constipation.
[2023-09-27] MEDS: lidocaine 2% viscous 15 ML, aluminum-mag hydrox-simethicon 30 ML, sucralfate oral liq 1 GM PO (07:33)
--- NOTE | 2023-09-27 07:33 | PC.PHAR ---
pts father verified pts medications-pts father states the pt is no longer taking iron 325mg bid ext shows last filled 09/01/23 30d/s 325mg bid-pts father states they weaned the pt off haloperidol 5mg bid about 4-5 days ago ext shows last filled 09/06/23 30d/s-pts father states the pt is taking levothyroxine 125mcg daily ext shows last filled 09/06/23 30d/s 125 mcg orally Wednesday - Wednesday and 250 mg on Wednesday-notes are made in the pharmacy comments
[2023-09-27 07:37] LABS: Basophils # 0.1 10^3/uL (0.0-0.1); Basophils % 1.7 %; Eosinophils # 0.4 10^3/uL (0.0-0.8); Eosinophils % 8.5 %; Hematocrit 44.9 % (36-47); Lymphocytes # 2.4 10^3/uL (0.8-4.8); Lymphocytes % 58.6 %; Mean Corpuscular HGB Conc 34.7 g/dL (30-55); Mean Corpuscular Hemoglobin 29.1 pg (27-33); Mean Corpuscular Volume 83.8 fl (85-98); Mean Platelet Volume 9.5 fL (7.4-10.4); Monocytes # 0.6 10^3/uL (0.2-0.9); Monocytes % 13.6 %; Neutrophils % 17.1 %; Nucleated Red Blood Cells % 0 %; Platelet Count 347 10^3/cmm (157-399); Red Blood Count 5.36 10^6/uL (3.85-5.65); Red Cell Distribution Width 12.8 % (12.1-15.1); White Blood Count 4.11 10^3/uL (3.29-11.43)
[2023-09-27 07:37] LABS: Add Urine Microscopic? YES; Bacteria Urine 1+ /hpf; Bilirubin Urine Neg (Negative); Blood Urine Neg (Negative); Glucose Urine UA Norm (Normal); HCG, Serum Qual Negative (Negative); Ketones Urine Negative (Negative); Leukocyte Esterase Urine Negative (Negative); Mucus Urine 1+ /hpf; Nitrate Urine Negative (Negative); Protein Urine Neg (Negative); RBC Urine 0-4 /hpf (0-2); Specific Gravity, Urine 1.025 (1.005-1.030); Squamous Epithelial Cell Urine 0-4 /hpf (0-5); Urine Appearance Cloudy (CLEAR); Urine Color Yellow (Yellow); Urobilinogen Urine Norm (Negative); WBC Urine 0-4 /hpf (0-5); pH Urine 6 (5-7)
[2023-09-27 07:46] LABS: Alanine Aminotransferase 22 U/L (0-33); Albumin Level 4.5 g/dL (3.5-5.2); Alkaline Phosphatase 54 U/L (35-105); Anion Gap 14.3 (5-19); Aspartate Amino Transferase 18 U/L (0-32); Blood Urea Nitrogen 13 mg/dL (6-20); Calcium 9.5 mg/dL (8.5-10.5); Carbon Dioxide 27 mmol/L (22-29); Chloride 104 mmol/L (98-107); Globulin 2.6 g/dL (1.3-4.6); Glomerular Filtration Rate 71.3 mL/min (90-130); Glucose 97 mg/dL (65-115); Lipase 22 U/L (13-60); Osmolality Calculated 292 mOsm/kg (285-295); Potassium 4.3 mmol/L (3.5-5.1); Sodium 141 mmol/L (136-145); Total Bilirubin 0.6 mg/dL (0.15-1.2); Total Protein 7.1 g/dL (6.6-8.7)
== END 2023-09-27 08:23 | disposition home or self-care (01) ==
PROVIDERS: Emergency Provider Family Medicine; PCP Family Medicine
DX: K21.9 Gastro-esophageal reflux disease without esophagitis (principal); D70.9 Neutropenia, unspecified
CPT/HCPCS: 36415; 74018; 80053; 81001; 83690; 84703; 85025; 87040; 99284

== ENCOUNTER → 2023-10-09 17:01 | Outpatient (BNVA) | payer MEDICAID, SELFPAY | PROVIDERS: PCP Family Medicine; Visit Provider Emergency Medicine | DX: D70.9 Neutropenia, unspecified (principal); R10.12 Left upper quadrant pain | CPT/HCPCS: 85007; 85027 ==

== ENCOUNTER → 2023-10-18 15:38 | Outpatient (BNVA) | payer MEDICAID, SELFPAY | PROVIDERS: PCP Family Medicine; Visit Provider Family Medicine | DX: R10.11 Right upper quadrant pain (principal); Z51.81 Encounter for therapeutic drug level monitoring; Z09 Encounter for follow-up examination after completed treatment for conditions other than malignant neoplasm; D70.9 Neutropenia, unspecified; E53.8 Deficiency of other specified B group vitamins | CPT/HCPCS: 80053; 82607; 85025; 85651; 86141 ==

== ENCOUNTER 2023-10-19 11:25 | Outpatient (CLI) | payer MEDICAID, SELFPAY ==
--- NOTE | 2023-10-19 12:00 | US_ITS ---
WS: [id number] RIGHT UPPER QUADRANT ULTRASOUND HISTORY: Right upper quadrant US COMPARISON: 12/10/2010 Liver: 15.8 cm in length. Normal size liver with mild hepatic steatosis. Portal Vein: Normal hepatopetal flow with monophasic waveform. Gallbladder: Cholelithiasis. Gallbladder wall is normal. No pericholecystic fluid. CBD: 0.3 cm Pancreas: Normal size and echogenicity. Right kidney: 12.7 cm in length. Normal size and echogenicity. No hydronephrosis or mass. Aorta and IVC: Unremarkable abdominal aorta and IVC. No ascites. IMPRESSION: 1. Cholelithiasis without evidence for for acute cholecystitis. 2. No bile duct dilatation. 3. Normal size liver with minimal hepatic steatosis.
== END 2023-10-19 11:26 | disposition home or self-care (01) ==
LOC: RAD 11:26
PROVIDERS: PCP Family Medicine; Visit Provider Family Medicine
DX: R10.11 Right upper quadrant pain (principal); D70.9 Neutropenia, unspecified
CPT/HCPCS: 76705; 80503; 82525; 83540; 84146; 87806

== ENCOUNTER → 2023-10-27 14:52 | Outpatient (BNVA) | payer MEDICAID, SELFPAY | PROVIDERS: PCP Family Medicine; Visit Provider Surgery | DX: R10.11 Right upper quadrant pain (principal); R10.13 Epigastric pain; R10.12 Left upper quadrant pain; K80.20 Calculus of gallbladder without cholecystitis without obstruction; K21.9 Gastro-esophageal reflux disease without esophagitis | CPT/HCPCS: 99204 ==

== ENCOUNTER 2023-11-03 07:13 | Day surgery (SDC) | payer MEDICAID, SELFPAY ==
--- NOTE | 2023-11-03 07:21 | P.ANESASSM_ITS ---
Pre-Anesthetic Assessment Height/Weight: Height 1.65 m Operation Date: 11/03/23 08:15 Proposed Procedures p [id number] egd R10.11(Not Applicable) - Riky Ugarte, DO Was Beta Chen taken within 24 hours: Yes Social No alcohol and No tobacco Exam alert, oriented x 3, clear to auscultation bilaterally and regular rate & rhythm Airway Submandibular: within normal limits Cervical ROM: within normal limits Mallampati: Class II History/ROS No significant history except as noted and No significant complaints Pulmonary None reported CV/HEM None reported None reported Hepatic None reported GI None reported Metabolic [place] [facility] [place] Lower Back Pain Neuropsych Depression OCD and tourettes Anesthetic Plan ASA status: 2 Anesthesia: Anesthesia Evaluation and MAC Risk of > 500 ml blood loss (7ml/kg in children): No Medications/Allergies Home Medications Medication Instructions Recorded Confirmed Last Taken Type levothyroxine 125 mcg tablet 125 mcg PO QAM 12/23/20 11/01/23 11/01/23 History (Synthroid) hydroxyzine HCl 25 mg tablet 25 mg PO BID ANXIETY 05/28/21 11/01/23 11/01/23 History buspirone 15 mg tablet 15 mg PO BID 12/03/22 11/01/23 11/01/23 History clomipramine 50 mg capsule 100 mg PO BEDTIME 12/03/22 11/01/23 11/01/23 History evening primrose oil 500 mg capsule 500 mg PO BID 12/03/22 11/01/23 11/01/23 History conj estrogen-medroxyprogesterone 1 tab PO QAM 09/27/23 11/01/23 11/01/23 History 0.625 mg(14)/0.625 mg-5mg(14) tablet (Premphase) ibuprofen-diphenhydramine citrate 2 - 3 tab PO BEDTIME PRN Sleep 09/27/23 11/01/23 11/01/23 History 200 mg-38 mg tablet (Advil PM) melatonin 5 mg tablet 10 mg PO BEDTIME PRN Sleep 09/27/23 11/01/23 11/01/23 History propranolol 10 mg tablet 10 mg PO BID 09/27/23 11/03/23 11/03/23 History lorazepam 1 mg tablet (Ativan) 1 mg PO BID may take one extra tab 10/18/23 11/01/23 11/01/23 History if needed Lactobacillus acidophilus 10 10,000 mmu cells PO DAILY 11/01/23 11/01/23 11/01/23 History billion cell capsule (Probiotic) lactulose 10 gram/15 mL oral syrup 20 g PO DAILY PRN Constipation 11/01/23 11/01/23 11/01/23 History pantoprazole 40 mg tablet,delayed 40 mg PO DAILY PRN Stomach Upset 11/01/23 11/01/23 11/01/23 History release Allergies Allergy/AdvReac Type Severity Reaction Status Date / Time chlorpromazine Allergy Severe ANAPHYLAXIS Verified 10/27/23 15:11 [From Thorazine] Penicillins AdvReac Made her Verified 10/27/23 15:11 hyper as a child--can take Keflex [facility] Anesthesia Medical History Obsessive compulsive disorder OCD, Tourette's disease--managed by medication by psychiatrist Dr. Martin in [place]. Hypothyroidism Diagnosed in her 20s and managed on medication by push bench operator helper Dr. Nick in [facility] Hyperprolactinemia Diagnosed in her 20s and managed by push bench operator helper Dr. Nick in [facility]. She does not think she is on any medication. Surgical History Hx of tonsillectomy (~1999) Hx of bilateral breast reduction surgery (~07/2014) Family History Mother Thyroid disease thyroid cancer Hypertension Father Diabetes Thyroid disease Family/Other Colon cancer maternal great grandmother Grandmother Heart disease maternal Hypertension materal Grandfather Hypertension maternal Denies family history of Ovarian cancer Hyperlipidemia Breast cancer Uterine cancer Stroke Social History Smoking and tobacco/nicotine status: never used tobacco/nicotine Alcohol intake: never Substance/Drug Use: never Data Anesthesia Cardiac Studies: No Data to Display
[2023-11-03 07:37] VITALS: BP 139/93; PULSE 81; RESP 18; TEMP 36.2; O2SAT 97; BMI 35.7
[2023-11-03] MEDS: sodium chloride 0.9% 1,000 ML 30 ML IV (07:45)
[2023-11-03 07:49] LABS: OR HCG Qualitative Urine Negative (Negative)
--- NOTE | 2023-11-03 07:50 | W.PM.OPSUD ---
Surgery/Procedure H&P Update DATE OF PROCEDURE: November 03, 2023 DATE H&P PERFORMED: 10/27/22 H&P UPDATE INFORMATION: I have reviewed H&P completed within last 30 days, I have examined patient prior to procedure and No changes to prior documentation PLANNED PROCEDURE: Operation Date: 11/03/23 08:15 Proposed Procedures p [id number] egd R10.11(Not Applicable) - Riky Ugarte, DO
[2023-11-03 08:10] VITALS: BP 118/79; PULSE 75; RESP 16; TEMP 36.9; O2SAT 98
[2023-11-03 08:20] VITALS: BP 126/86; PULSE 75; RESP 16; O2SAT 98
--- NOTE | 2023-11-03 14:12 | ANE.PACU2 ---
Inpatient post-anesthesia follow up: Airway intact: Yes Vital signs: Temperature 98.4 F Pulse Rate 75 Respiratory Rate 16 Blood Pressure 126/86 Pulse Oximetry 98 Oxygen Delivery Me thod Room Air Oxygen Flow Rate Fraction of Inspir ed Oxygen Hydration adequate: Yes Nausea and vomiting: No Pain level: 2 Mental status: Baseline
== END 2023-11-03 08:41 | disposition home or self-care (01) ==
PROVIDERS: Anesthesiology; PCP Family Medicine; Visit Provider Surgery
PROC: 0DJ08ZZ Inspection of Upper Intestinal Tract, Via Natural or Artificial Opening Endoscopic (ICD-10-PCS; CPT 43235; principal; 2023-11-03 08:15)
DX: R10.11 Right upper quadrant pain (principal); K29.70 Gastritis, unspecified, without bleeding; E03.9 Hypothyroidism, unspecified
CPT/HCPCS: 43239; 81025; 84703; 88305; 88342; J2704; J7030

== ENCOUNTER → 2023-11-15 08:55 | Outpatient (BNVA) | payer MEDICAID, SELFPAY | PROVIDERS: PCP Family Medicine; Visit Provider Surgery | DX: Z09 Encounter for follow-up examination after completed treatment for conditions other than malignant neoplasm (principal); K80.20 Calculus of gallbladder without cholecystitis without obstruction | CPT/HCPCS: 99214 ==

== ENCOUNTER 2023-11-16 08:25 | Oncology outpatient (recurring) (ONCR) | payer MEDICAID, SELFPAY ==
[2023-11-16 16:58] LABS: Basophils # 0.1 10^3/uL (0.0-0.1); Basophils % 1.8 %; Eosinophils # 0.2 10^3/uL (0.0-0.8); Hematocrit 37.9 % (36-47); Lymphocytes # 1.4 10^3/uL (0.8-4.8); Lymphocytes % 41.5 %; Mean Corpuscular HGB Conc 36.4 g/dL (30-55); Mean Corpuscular Hemoglobin 29.6 pg (27-33); Mean Corpuscular Volume 81.3 fl (85-98); Mean Platelet Volume 9.6 fL (7.4-10.4); Monocytes # 0.5 10^3/uL (0.2-0.9); Monocytes % 14.3 %; Neutrophils # 1.28 10^3/uL (1.8-7.7); Neutrophils % 37.4 %; Nucleated Red Blood Cells % 0 %; Platelet Count 299 10^3/cmm (157-399); Red Blood Count 4.66 10^6/uL (3.85-5.65); Red Cell Distribution Width 12.7 % (12.1-15.1); White Blood Count 3.42 10^3/uL (3.29-11.43)
[2023-11-16 17:20] LABS: Alanine Aminotransferase 18 U/L (0-33); Albumin Level 4.2 g/dL (3.5-5.2); Alkaline Phosphatase 45 U/L (35-105); Anion Gap 13.7 (5-19); Aspartate Amino Transferase 15 U/L (0-32); Blood Urea Nitrogen 10 mg/dL (6-20); Calcium 9.4 mg/dL (8.5-10.5); Carbon Dioxide 23 mmol/L (22-29); Chloride 107 mmol/L (98-107); Creatinine Clr Calc Pharmacy 145.9601; Ferritin 103 ng/mL (15-150); Globulin 2.4 g/dL (1.3-4.6); Glomerular Filtration Rate 113.8 mL/min (90-130); Glucose 117 mg/dL (65-115); Iron 81 ug/dL (37-145); Lactate Dehydrogenase 135 U/L (135-214); Osmolality Calculated 290 mOsm/kg (285-295); Percent Saturation 29.6 % (20-50); Potassium 3.7 mmol/L (3.5-5.1); Sodium 140 mmol/L (136-145); Total Bilirubin 0.6 mg/dL (0.15-1.2); Total Iron Binding Capacity 273 mcg/dl; Total Protein 6.6 g/dL (6.6-8.7); Unsaturated Iron Binding 192 ug/dL (112-347)
[2023-11-16 17:24] LABS: LAB Peripheral Smear Sent for Review
[2023-11-16 17:34] LABS: Vitamin B12 653 pg/mL (232-1245)
[2023-11-16 18:19] LABS: Folate Level 15.9 ng/mL (4.8-37.3)
[2023-11-19 19:29] LABS: Copper Level 143 mcg/dL (70-175)
== END 2023-12-09 23:59 | disposition home or self-care (01) ==
PROVIDERS: Internal Medicine Medical Oncology; PCP Family Medicine; Visit Provider Family Medicine
DX: D70.9 Neutropenia, unspecified (principal); E83.19 Other disorders of iron metabolism; R53.83 Other fatigue; F95.2 Tourette's disorder; F42.9 Obsessive-compulsive disorder, unspecified; Z79.899 Other long term (current) drug therapy; K59.00 Constipation, unspecified; E22.1 Hyperprolactinemia
CPT/HCPCS: 36415; 80053; 81256; 82525; 82607; 82728; 82746; 83540; 83550; 83615; 85025; 99205

== ENCOUNTER → 2023-12-01 14:02 | Outpatient (BNVA) | payer MEDICAID, SELFPAY | PROVIDERS: PCP Family Medicine; Visit Provider Family Medicine | DX: M79.10 Myalgia, unspecified site (principal); Z51.81 Encounter for therapeutic drug level monitoring | CPT/HCPCS: 80053; 82550; 82552; 83735; 85025; 85651; 86141 ==

== ENCOUNTER 2023-12-27 11:55 | Oncology outpatient (recurring) (ONCR) | payer MEDICARE, MEDICAID, SELFPAY ==
[2023-12-27 13:39] LABS: Basophils # 0.1 10^3/uL (0.0-0.1); Basophils % 1.9 %; Eosinophils # 0.1 10^3/uL (0.0-0.8); Eosinophils % 4.1 %; Hematocrit 41.6 % (36-47); Lymphocytes # 1.3 10^3/uL (0.8-4.8); Lymphocytes % 47.8 %; Mean Corpuscular HGB Conc 34.6 g/dL (30-55); Mean Corpuscular Hemoglobin 29.3 pg (27-33); Mean Corpuscular Volume 84.6 fl (85-98); Mean Platelet Volume 9.4 fL (7.4-10.4); Monocytes # 0.7 10^3/uL (0.2-0.9); Monocytes % 26.7 %; Neutrophils % 19.1 %; Nucleated Red Blood Cells % 0 %; Platelet Count 281 10^3/cmm (157-399); Red Blood Count 4.92 10^6/uL (3.85-5.65); Red Cell Distribution Width 13.2 % (12.1-15.1)
[2023-12-27 14:00] LABS: Alanine Aminotransferase 19 U/L (0-33); Albumin Level 4.1 g/dL (3.5-5.2); Alkaline Phosphatase 57 U/L (35-105); Aspartate Amino Transferase 14 U/L (0-32); Blood Urea Nitrogen 6 mg/dL (6-20); C Reactive Protein 34.2 mg/L (0.0-4.9); Calcium 9.5 mg/dL (8.5-10.5); Carbon Dioxide 25 mmol/L (22-29); Chloride 101 mmol/L (98-107); Globulin 2.3 g/dL (1.3-4.6); Glomerular Filtration Rate 95.2 mL/min (90-130); Glucose 121 mg/dL (65-115); Osmolality Calculated 281 mOsm/kg (285-295); Sodium 136 mmol/L (136-145); Total Bilirubin 0.5 mg/dL (0.15-1.2); Total Protein 6.4 g/dL (6.6-8.7)
[2023-12-27 14:02] LABS: Neutrophils # 0.52 10^3/uL (1.8-7.7)
[2023-12-27 14:11] LABS: Erythrocyte Sedimentation Rate 2 mm/hr (0-15)
[2023-12-28 10:56] LABS: LAB Peripheral Smear Sent for Review
== END 2024-01-09 23:59 | disposition home or self-care (01) ==
PROVIDERS: Internal Medicine Medical Oncology; PCP Family Medicine; Visit Provider Family Medicine
DX: D70.9 Neutropenia, unspecified (principal); E83.19 Other disorders of iron metabolism; R53.83 Other fatigue; F95.2 Tourette's disorder; F42.9 Obsessive-compulsive disorder, unspecified; Z79.899 Other long term (current) drug therapy; K59.00 Constipation, unspecified; E22.1 Hyperprolactinemia
CPT/HCPCS: 36415; 80053; 85025; 85651; 86140; 99214

== ENCOUNTER 2024-01-19 01:10 | Emergency (ER) | payer MEDICAID, SELFPAY ==
--- NOTE | 2024-01-19 01:14 | ED_ITS ---
HPI - Eye Problem General: Chief complaint: Eye Problems Stated complaint: right eye pain Time Seen by Provider: 01/19/24 01:13 History of Present Illness: 33-year-old female presents to the [facility] ency department with complaints of right eye irritation. She states that she used contact inspector multifocal lens with 3% hydrogen peroxide and started having irritation to her right eye. She does have a recent history of bacterial conjunctivitis for which she was treated she states that did clear up. The patient does appear to be very anxious and continues repeatedly to apologize. She does state that she has Tourette's. She denies decrease in vision. She states she does have excessive tearing and redness to the right eye. She denies sharp stabbing pain. She does endorse a burning type sensation. Review of Systems General: Reports: 10 or more systems reviewed and unremarkable except in HPI and below Eyes: Reports: eye discomfort and eye redness [facility] ED PFSH: Medical History Obsessive compulsive disorder OCD, Tourette's disease--managed by medication by psychiatrist Dr. Martin in [place]. Hypothyroidism Diagnosed in her 20s and managed on medication by chief counsel Dr. Nick in [facility] Hyperprolactinemia Diagnosed in her 20s and managed by chief counsel Dr. Nick in [facility]. She does not think she is on any medication. Surgical History Hx of tonsillectomy (~1999) Hx of bilateral breast reduction surgery (~07/2014) Family History Mother Thyroid disease thyroid cancer Hypertension Father Diabetes Thyroid disease Family/Other Colon cancer maternal great grandmother Grandmother Heart disease maternal Hypertension materal Grandfather Hypertension maternal Denies family history of Ovarian cancer Hyperlipidemia Breast cancer Uterine cancer Stroke Social History Smoking and tobacco/nicotine status: never used tobacco/nicotine Alcohol intake: never Substance/Drug Use: never Physical Exam Narrative: EXAM NARRATIVE: Constitutional: the patient appears well nourished and of normal development. Vital signs as documented. No acute distress at present. Alert and oriented-to person, place, time and situation. Head, eyes, ears, nose, mouth, throat: Normocephalic, atraumatic. Pupils-equal, round, reactive to light. Excessive tearing to the right eye, significant conjunctival erythema noted. There is no subconjunctival hemorrhage. The periorbital area does appear to be slightly swollen to the right eye as the patient is continuously touching her eye and rubbing her right eye while in the exam room despite being redirected greater than 20 times. No scleral icterus. Normal-appearing external ears. Normal appearing nasal turbinates, no drainage. No obvious oral lesions, posterior oropharynx without erythema or exudates. Neck: Supple, trachea is midline, no lymphadenopathy, no jugular venous distension, thyromegaly, or carotid bruits. Carotid upstrokes are brisk bilat erally. Lungs: clear to auscultation to all lung diaz. Symmetrical rise and fall of chest, no obvious signs of increased work of breathing at present. Cardiac: Regular rate and rhythm, positive S1, S2. No murmurs, rubs or gallops that I can appreciate Abdomen: Soft, non-tender to palpation, normal active bowel sounds to all quadrants. No palpable masses, no organomegaly and abdominal bruits. Extremities: 2+ pulses in the upper extremities that are equal bilaterally, 2+ pulses in the lower extremities that are equal bilaterally. Non-edematous. Moves all extremities well, sensation to all extremities are noted. Skin: Warm, dry, intact. Course Vital Signs: Vital signs: Vital Signs Temperature 97.6 F 01/19/24 01:19 Pulse Rate 87 01/19/24 02:50 Respiratory Rate 18 01/19/24 01:19 Blood Pressure 157/90 01/19/24 02:50 Pulse Oximetry 96 01/19/24 02:50 Oxygen Delivery Me thod Room Air 01/19/24 02:40 MDM - Eye Problem Medical Decision Making Physical exam completed and documented, I did provide continuous irrigation to the right eye and we applied erythromycin ointment as well as an eye patch for protection. I advised the patient to follow-up with her primary care provider or her cloth printing inspector. Medical Records I reviewed the patient's medical records. No radiology studies performed this visit Discharge Plan Discharge Patient Disposition: Home Clinical Impression: Corneal erythema of right eye Corneal abrasion Qualifiers: Encounter type: initial encounter Laterality: right Qualified Code(s): S05.01XA - Injury of conjunctiva and corneal abrasion without foreign body, right eye, initial encounter Condition: Stable Prescriptions: New erythromycin 5 mg/gram (0.5 %) ointment 1 applic ophthalmic (eye) BID 7 Days Qty: 3.5 0RF No Action acetaminophen 500 mg capsule 500 mg PO Q6H PRN desvenlafaxine succinate 25 mg tablet extended release 24 hr 25 mg PO DAILY neomycin-polymyxin B-dexameth [Maxitrol] 3.5mg/mL-10,000 unit/mL-0.1 % drops,suspension 1 drp ophthalmic (eye) Q2H 7 Days Qty: 5 0RF ferrous sulfate 325 mg (65 mg iron) tablet 325 mg PO BID Qty: 60 3RF clomipramine 50 mg capsule 150 mg PO BEDTIME Qty: 90 0RF levofloxacin 500 mg tablet 500 mg PO DAILY 7 Days Qty: 7 0RF levothyroxine [Synthroid] 125 mcg Tablet 125 mcg PO QAM hydroxyzine HCl 25 mg tablet 25 mg PO BID lorazepam [Ativan] 1 mg tablet 1 mg PO BID MDD 3 tabs Rx Instructions: Take one tab in the am and two at night buspirone 15 mg tablet 15 mg PO BID propranolol 10 mg tablet 10 mg PO BID Advil PM 200-38 mg Tablet 2 - 3 tab PO BEDTIME PRN (Reason: Sleep) Hold Instructions: Resume on 11/05/23. melatonin 5 mg Tablet 10 mg PO BEDTIME PRN (Reason: Sleep) Premphase 0.625 mg (14)/ 0.625mg-5mg(14) tablet 1 tab PO QAM lactulose 10 gram/15 mL Syrup 20 g PO DAILY PRN (Reason: Constipation) Probiotic 10 billion cell Capsule 10,000 mmu cells PO DAILY Protonix 40 mg tablet,delayed release (DR/EC) 40 mg PO BID 42 Days Qty: 84 1RF Discharge Orders: Discharge ED (Routine); Ordered 01/19/24 Ordered By: Dre Hutchinson Referrals: Nicola De Jesus MD [Physician] - Lamberto Mejias MD [Primary Care Provider] - Discharge Diet: Usual diet Discharge Activity: Resume usual activity Patient Instructions: Opioid Safety, Pain Management Activity Restrictions/Additional Instructions: Activity Restrictions/Additional Instructions: Thank you for choosing [facility] for your healthcare needs today. Please realize that you were seen in the Emergency Department and that we are providing you with an emergency medical screening exam and this may not be a complete and all inclusive of all the testing and or medical work-up that you may need to determine your ailment or severity of your illness. It is very important that you follow-up as instructed with your Primary care provider or Specialist for additional evaluation and to discuss your medical treatment plan. Y Coding Level of Care Code ED Photo Lab Manager for Alexei Zhao
[2024-01-19 01:19] VITALS: BP 128/70; PULSE 98; RESP 18; TEMP 36.4; O2SAT 97; BMI 36.3
[2024-01-19 02:40] VITALS: BP 157/90; PULSE 87; O2SAT 96
[2024-01-19] MEDS: sodium chloride 0.9% 500 ML 999 ML IV (02:46)
[2024-01-19] MEDS: erythromycin Op Oint 1 gm 1 APPLIC EYE-RIGHT (02:46)
[2024-01-19 02:50] VITALS: BP 157/90; PULSE 87; O2SAT 96
== END 2024-01-19 02:50 | disposition home or self-care (01) ==
PROVIDERS: Emergency Provider Internal Medicine; PCP Family Medicine
DX: S05.01XA Injury of conjunctiva and corneal abrasion without foreign body, right eye, initial encounter (principal); L53.8 Other specified erythematous conditions; F95.2 Tourette's disorder; X58.XXXA Exposure to other specified factors, initial encounter
CPT/HCPCS: 99284; J7040

== ENCOUNTER 2024-02-01 15:29 | Oncology outpatient (recurring) (ONCR) | payer MEDICAID, SELFPAY ==
[2024-02-01 16:04] LABS: Basophils # 0.1 10^3/uL (0.0-0.1); Basophils % 2.2 %; Eosinophils # 0.2 10^3/uL (0.0-0.8); Hematocrit 42.3 % (36-47); Lymphocytes # 1.4 10^3/uL (0.8-4.8); Lymphocytes % 38.5 %; Mean Corpuscular HGB Conc 34.3 g/dL (30-55); Mean Corpuscular Hemoglobin 28.7 pg (27-33); Mean Corpuscular Volume 83.6 fl (85-98); Mean Platelet Volume 9.3 fL (7.4-10.4); Monocytes # 0.5 10^3/uL (0.2-0.9); Monocytes % 13.2 %; Neutrophils # 1.55 10^3/uL (1.8-7.7); Neutrophils % 41.8 %; Nucleated Red Blood Cells % 0 %; Platelet Count 324 10^3/cmm (157-399); Red Blood Count 5.06 10^6/uL (3.85-5.65); Red Cell Distribution Width 13.2 % (12.1-15.1); White Blood Count 3.71 10^3/uL (3.29-11.43)
== END 2024-02-08 23:59 | disposition home or self-care (01) ==
LOC: ONCMED 15:30
PROVIDERS: Internal Medicine Medical Oncology; PCP Family Medicine; Visit Provider Family Medicine
DX: D70.9 Neutropenia, unspecified (principal)
CPT/HCPCS: 36415; 85025

== ENCOUNTER 2024-03-28 12:10 | Oncology outpatient (recurring) (ONCR) | payer MEDICAID, SELFPAY ==
[2024-03-28 12:41] LABS: Basophils # 0.1 10^3/uL (0.0-0.1); Basophils % 2.3 %; Eosinophils # 0.3 10^3/uL (0.0-0.8); Hematocrit 42.3 % (36-47); Lymphocytes # 1.9 10^3/uL (0.8-4.8); Lymphocytes % 49.4 %; Mean Corpuscular HGB Conc 34.8 g/dL (30-55); Mean Corpuscular Volume 83.4 fl (85-98); Mean Platelet Volume 9.3 fL (7.4-10.4); Monocytes # 0.5 10^3/uL (0.2-0.9); Monocytes % 12.7 %; Neutrophils # 1.06 10^3/uL (1.8-7.7); Neutrophils % 27.3 %; Nucleated Red Blood Cells % 0 %; Platelet Count 347 10^3/cmm (157-399); Red Blood Count 5.07 10^6/uL (3.85-5.65); Red Cell Distribution Width 13.4 % (12.1-15.1); White Blood Count 3.87 10^3/uL (3.29-11.43)
[2024-03-28 13:00] LABS: Alanine Aminotransferase 18 U/L (0-33); Alkaline Phosphatase 51 U/L (35-105); Anion Gap 14.2 (5-19); Aspartate Amino Transferase 19 U/L (0-32); Blood Urea Nitrogen 9 mg/dL (6-20); C Reactive Protein 3.2 mg/L (0.0-4.9); Carbon Dioxide 24 mmol/L (22-29); Chloride 102 mmol/L (98-107); Globulin 2.5 g/dL (1.3-4.6); Glomerular Filtration Rate 95.2 mL/min (90-130); Glucose 118 mg/dL (65-115); Lactate Dehydrogenase 123 U/L (135-214); Osmolality Calculated 282 mOsm/kg (285-295); Potassium 4.2 mmol/L (3.5-5.1); Sodium 136 mmol/L (136-145); Total Bilirubin 0.4 mg/dL (0.15-1.2); Total Protein 6.5 g/dL (6.6-8.7)
[2024-03-28 13:32] LABS: Erythrocyte Sedimentation Rate < 1 mm/hr (0-15)
[2024-03-29 15:04] LABS: Anti-Nuclear Antibody Screen NEGATIVE (NEGATIVE)
[2024-04-05 09:34] LABS: Clomipramine 273 mcg/L (50-250); Clomipramine & Norclomipramine 452 mcg/L (200-600); Desmethyclomipramine 179 mcg/L (150-350)
== END 2024-04-09 23:59 | disposition home or self-care (01) ==
LOC: ONCMED 12:10
PROVIDERS: PCP Family Medicine; Visit Provider Internal Medicine Medical Oncology
DX: D70.9 Neutropenia, unspecified (principal); F42.9 Obsessive-compulsive disorder, unspecified; E22.1 Hyperprolactinemia
CPT/HCPCS: 36415; 80053; 80299; 83615; 85025; 85651; 86038; 86140; 99214

== ENCOUNTER 2024-10-14 18:29 | Emergency (ER) | payer MEDICARE, MEDICAID, SELFPAY ==
[2024-10-14 18:37] VITALS: BP 121/82; PULSE 82; RESP 18; TEMP 36.7; O2SAT 100; BMI 41.5
[2024-10-14 20:07] LABS: Basophils % 1.4 %; Eosinophils # 0.1 10^3/uL (0.0-0.8); Eosinophils % 4.6 %; Hematocrit 40.9 % (36-47); Lymphocytes # 1.6 10^3/uL (0.8-4.8); Lymphocytes % 55.1 %; Mean Corpuscular HGB Conc 33.5 g/dL (30-55); Mean Corpuscular Hemoglobin 28.4 pg (27-33); Mean Corpuscular Volume 84.7 fl (85-98); Monocytes # 0.4 10^3/uL (0.2-0.9); Monocytes % 15.1 %; Neutrophils % 23.4 %; Nucleated Red Blood Cells % 0 %; Platelet Count 268 10^3/cmm (157-399); Red Blood Count 4.83 10^6/uL (3.85-5.65); Red Cell Distribution Width 13.1 % (12.1-15.1); White Blood Count 2.85 10^3/uL (3.29-11.43)
[2024-10-14 20:16] LABS: Neutrophils # 0.67 10^3/uL (1.8-7.7)
[2024-10-14 20:22] LABS: Alanine Aminotransferase 15 U/L (0-33); Alkaline Phosphatase 52 U/L (35-105); Anion Gap 22.9 (5-19); Aspartate Amino Transferase 13 U/L (0-32); Blood Urea Nitrogen 11 mg/dL (6-20); Carbon Dioxide 24 mmol/L (22-29); Chloride 97 mmol/L (98-107); Creatinine Clr Calc Pharmacy 122.1013; Globulin 2.1 g/dL (1.3-4.6); Glomerular Filtration Rate 81.2 mL/min (90-130); Glucose 83 mg/dL (65-115); Lipase 29 U/L (13-60); Osmolality Calculated 289 mOsm/kg (285-295); Potassium 3.9 mmol/L (3.5-5.1); Sodium 140 mmol/L (136-145); Total Bilirubin 0.4 mg/dL (0.15-1.2); Total Protein 6.1 g/dL (6.6-8.7)
--- NOTE | 2024-10-14 20:24 | CTR_ITS ---
PROCEDURE INFORMATION: Exam: CT Abdomen And Pelvis Without Contrast Exam date and time: 10/14/2024 9:17 PM Age: 34 years old Clinical indication: Abdominal pain; Patient HX: C/O left flank pain with fever; Additional info: Kidney stone? TECHNIQUE: Imaging protocol: Computed tomography of the abdomen and pelvis without contrast. Radiation optimization: All CT scans at this facility use at least one of these dose optimization techniques: automated exposure control; mA and/or kV adjustment per patient size (includes targeted exams where dose is matched to clinical indication); or iterative reconstruction. COMPARISON: CT abdomen pelvis w con* [id number] 08/18/2022 8:45 AM RADIATION DOSE METRICS: Total DLP (mGy-cm): 1025.33 FINDINGS: Liver: Unremarkable. No mass. Gallbladder and biliary ducts: Small gallstone. No acute cholecystitis. Pancreas: Unremarkable. No ductal dilation. Spleen: Unremarkable. No mass. Adrenal glands: Unremarkable. No mass. Kidneys and ureters: Similar atrophic appearance of the left kidney with multifocal cortical scarring. No renal stones or hydronephrosis. Stomach and bowel: Unremarkable. No obstruction. No significant mucosal thickening. Appendix: No evidence of appendicitis. Intraperitoneal space: No free air. No significant fluid collection. Vasculature: No abdominal aortic aneurysm. Lymph nodes: No enlarged lymph nodes. Urinary bladder: Urinary bladder wall thickening. Reproductive: Unremarkable as visualized. Bones/joints: No acute fracture. No suspicious lesion. Soft tissues: No bowel containing hernia. CT/CT kidney stone [id number] IMPRESSION: 1. No evidence of renal stones or obstructive uropathy. Similar atrophic appearance of the left kidney. 2. Urinary bladder wall thickening is nonspecific and may be related to underdistension or cystitis; consider correlation with urinalysis. 3. Small gallstones.
[2024-10-14 20:43] LABS: Bilirubin Urine Negative (Negative); Blood Urine Negative (Negative); Glucose Urine UA Negative (Normal); Ketones Urine Negative (Negative); Leukocyte Esterase Urine Negative (Negative); Nitrate Urine Negative (Negative); Protein Urine Negative (Negative); Urine Appearance Cloudy (CLEAR); Urine Color Yellow (Yellow); pH Urine 5.5 (5-7)
[2024-10-14 20:45] LABS: HCG Qualitative Urine. Negative (Negative)
[2024-10-14 20:49] LABS: Add Urine Microscopic? YES; Bacteria Urine 4+ /hpf
[2024-10-14 20:55] LABS: Specific Gravity, Urine 1.031 (1.005-1.030)
--- NOTE | 2024-10-15 00:02 | W.ED.BACK ---
HPI - Back Pain/Injury General: Chief Complaint: Back Pain/Injury Stated Complaint: abdominal pain Time Seen by Provider: 10/14/24 19:40 History of Present Illness: Patient is a 34-year-old female that presents to the emergency department with flank pain that radiates to the lower quadrants. Onset of symptoms 3 days ago. She denies nausea vomiting or diarrhea. She does report decreased appetite and fatigue. Patient has a history of neutropenia. She is currently under the care of Dr. Bangura. Patient also has a history of Tourette's. Associated symptoms: Reports abdominal pain and fatigue Related Data Home Medications Medication Instructions Recorded Confirmed levothyroxine 125 mcg tablet 125 mcg PO QAM 12/23/20 05/29/24 (Synthroid) hydroxyzine HCl 25 mg tablet 25 mg PO BID ANXIETY 05/28/21 05/29/24 buspirone 15 mg tablet 15 mg PO BID 12/03/22 05/29/24 ibuprofen-diphenhydramine citrate 2 - 3 tab PO BEDTIME PRN Sleep 09/27/23 05/29/24 200 mg-38 mg tablet (Advil PM) melatonin 5 mg tablet 10 mg PO BEDTIME PRN Sleep 09/27/23 05/29/24 propranolol 10 mg tablet 10 mg PO BID 09/27/23 05/29/24 lorazepam 1 mg tablet (Ativan) 1 mg PO BID may take one extra tab 10/18/23 05/29/24 if needed Lactobacillus acidophilus 10 10,000 mmu cells PO DAILY 11/01/23 05/29/24 billion cell capsule (Probiotic) lactulose 10 gram/15 mL oral syrup 20 g PO DAILY PRN Constipation 11/01/23 05/29/24 acetaminophen 500 mg capsule 500 mg PO Q6H PRN 11/16/23 05/29/24 desvenlafaxine succinate 25 mg 25 mg PO DAILY 12/01/23 05/29/24 tablet,extended release 24 hr Previous Rx's Medication Instructions Recorded levofloxacin 500 mg tablet 500 mg PO DAILY 7 days #7 tabs 12/28/23 [id number] 3.5 1 drp ophthalmic (eye) Q2H 7 days 12/28/23 mg/mL-10,000 unit/mL-0.1% eye #5 mL drops (Maxitrol) clomipramine 50 mg capsule See Rx Instructions .Route 03/21/24 .COMPLEX #90 caps ferrous sulfate 325 mg (65 mg See Rx Instructions .Route 05/11/24 iron) tablet (FeroSul) .COMPLEX #60 tabs conj estrogen-medroxyprogesterone 1 tab PO QAM #28 tabs 07/12/24 0.625 mg(14)/0.625 mg-5mg(14) tablet (Premphase) pantoprazole 40 mg tablet,delayed 40 mg PO DAILY #90 tabs 09/25/24 release (Protonix) Allergies Allergy/AdvReac Type Severity Reaction Status Date / Time chlorpromazine Allergy Severe ANAPHYLAXIS Verified 01/19/24 01:24 [From Thorazine] Penicillins AdvReac Made her Verified 01/19/24 01:24 hyper as a child--can take Keflex Review of Systems General: Reports: 10 or more systems reviewed and unremarkable except in HPI and below Const: Reports: body aches, fatigue and change in sleep pattern GI: Reports: abdominal pain : Reports: flank pain Gilson/Lymph: Reports: easy bruising PFSH ED PFSH: Medical History Obsessive compulsive disorder OCD, Tourette's disease--managed by medication by psychiatrist Dr. Martin in [place]. Hypothyroidism Diagnosed in her 20s and managed on medication by mall manager Dr. Nick in [facility] Hyperprolactinemia Diagnosed in her 20s and managed by mall manager Dr. Nick in [facility]. She does not think she is on any medication. Surgical History Hx of tonsillectomy (~1999) Hx of bilateral breast reduction surgery (~07/2014) Family History Mother Thyroid disease thyroid cancer Hypertension Father Diabetes Thyroid disease Family/Other Colon cancer maternal great grandmother Grandmother Heart disease maternal Hypertension materal Grandfather Hypertension maternal Denies family history of Ovarian cancer Hyperlipidemia Breast cancer Uterine cancer Stroke Social History Smoking and tobacco/nicotine status: never used tobacco/nicotine Alcohol intake: never Substance/Drug Use: never Female Reproductive History: Date of last menstrual period: 10/11/24 Physical Exam Const: COMMON NORMALS: no acute distress, patient oriented x3 and alert GENERAL APPEARANCE: cooperative ORIENTATION/CONSCIOUSNESS: Yes awake, Yes oriented to person, Yes oriented to place and Yes oriented to time HENMT: COMMON NORMALS: normocephalic and atraumatic HEAD & SCALP: normocephalic and atraumatic FACE & SINUS: normal facial exam MOUTH: Normal oral and palatal mucosa present THROAT: posterior oropharynx normal Eye: COMMON NORMALS: Equal, round and reactive pupils present, EOMs intact bilaterally, conjunctivae normal and no scleral icterus GENERAL EYE: appearance normal, both eyes and all related structures ALIGNMENT: Yes alignment normal PERIORBITAL: periorbital findings normal CONJUNCTIVA: Yes conjunctivae normal PUPIL: Yes Equal, round and reactive pupils present Neck/C-Spine: COMMON NORMALS: full ROM GENERAL: Yes normal visual inspection Chest: COMMONS NORMALS: normal inspection of the chest Breast/axilla inspection: Yes no chest deformity, asymmetry, normal contours, no nodules, masses, tenderness Resp: COMMON NORMALS: normal respiratory effort, No retractions and No use of accessory muscles EFFORT & INSPECTION: Yes able to speak in complete sentences and Yes symmetric chest movement Cardio: COMMON NORMALS: regular rate and Peripheral pulses 2+ throughout RATE: regular rate PERIPHERAL PULSES: Peripheral pulses 2+ throughout GI: COMMON NORMALS: Normal to inspection, nondistended, normoactive bowel sounds present, Soft to palpation, non-tender and No hepatosplenomegaly present INSPECTION: Yes normal to inspection AUSCULTATION: Yes normoactive bowel sounds PALPATION: Yes Soft to palpation and Yes No hepatosplenomegaly present RECTAL EXAM: deferred : BLADDER/KIDNEY EXAM: Yes CVA tenderness Back/Pelvis: GENERAL BACK: Yes CVA tenderness LUMBAR SPINE/LOWER BACK: Yes paraspinal muscle tenderness Extremity: COMMON NORMALS: normal to inspection GENERAL: Yes normal exam except as noted Neuro: COMMON NORMALS: patient oriented x3 SENSORIUM/ORIENTATION: Yes alert, Yes oriented to person, Yes oriented to place and Yes oriented to time CRANIAL NERVES: Yes CN normal except as noted Psych: COMMON NORMALS: mental status grossly normal, Normal thought process present, cooperative, activity/motor behavior normal, denies homicidal ideation and denies suicidal ideation THOUGHT PROCESS: Normal thought process present Course Vital Signs: Vital signs: Vital Signs Temperature 98.1 F 01/04/25 18:37 Pulse Rate 82 10/14/24 18:37 Respiratory Rate 18 10/14/24 18:37 Blood Pressure 121/82 10/14/24 18:37 Pulse Oximetry 100 10/14/24 18:37 Oxygen Delivery Me thod Room Air 10/14/24 18:37 MDM - Back Pain/Injury Medical Decision Making Patient was evaluated in the emergency department with complaints of back pain that radiates into the lower quadrants of the abdomen. Intermittently left or right-sided. Patient underwent laboratory evaluation which included a CBC CMP, lipase, urinalysis, urine test. The laboratory findings revealed she had neutropenia with a total neutrophil count of 0.67. Her home appliances mechanic/oncologist, Dr. Bangura has recommended she maintain a neutrophil count greater than 1000 (1.0). She is afebrile and has no source of infection that has been identified. She has follow-up planned with her primary doctor on Wednesday and will also be contacting Dr. Bangura office to discuss further. The CT of the abdomen pelvis revealed no evidence of renal stone or obstructive uropathy. She has an atrophic left kidney. Her urinary bladder wall is thickened but her urinalysis reveals no leukoesterase, nitrates, bacteria or white blood cells. She does have a few small gallstones. This could be in part some of the symptoms she has had in the past. She needs to have further evaluation for gallbladder disease. At this time no further diagnostics are warranted. He is comfortable and she is ready for discharge. Labs 10/14/24 20:00 10/14/24 20:00 Radiology Impressions Abdomen/Pelvis CT 10/14/24 20:24 IMPRESSION: 1. No evidence of renal stones or obstructive uropathy. Similar atrophic appearance of the left kidney. 2. Urinary bladder wall thickening is nonspecific and may be related to underdistension or cystitis; consider correlation with urinalysis. 3. Small gallstones. Laboratory Results WBC 2.85 10^3/uL (3.29-11.43) L 10/14/24 20:00 RBC 4.83 10^6/uL (3.85-5.65) 10/14/24 20:00 Hgb 13.70 g/dL (11.27-16.99) 10/14/24 20:00 Hct 40.9 % (36-47) 10/14/24 20:00 MCV 84.7 fl (85-98) L 10/14/24 20:00 MCH 28.4 pg (27-33) 10/14/24 20:00 MCHC 33.5 g/dL (30-55) 10/14/24 20:00 RDW 13.1 % (12.1-15.1) 10/14/24 20:00 Plt Count 268 10^3/cmm (157-399) 10/14/24 20:00 MPV 9.0 fL (7.4-10.4) 10/14/24 20:00 Neut % (Auto) 23.4 % 10/14/24 20:00 Lymph % (Auto) 55.1 % 10/14/24 20:00 [place]rack[place] % (Auto) 15.1 % 10/14/24 20:00 Eos % (Auto) 4.6 % 10/14/24 20:00 Baso % (Auto) 1.4 % 10/14/24 20:00 Neut # (Auto) 0.67 10^3/uL (1.8-7.7) L* 10/14/24 20:00 Lymph # (Auto) 1.6 10^3/uL (0.8-4.8) 10/14/24 20:00 [place]rack[place] # (Auto) 0.4 10^3/uL (0.2-0.9) 10/14/24 20:00 Eos # (Auto) 0.1 10^3/uL (0.0-0.8) 10/14/24 20:00 Baso # (Auto) 0.0 10^3/uL (0.0-0.1) 10/14/24 20:00 Nucleated RBC % (auto) 0 % 10/14/24 20:00 Nucleated RBCs # 0.0 /100WBC 10/14/24 20:00 Sodium 140 mmol/L (136-145) 10/14/24 20:00 Potassium 3.9 mmol/L (3.5-5.1) 10/14/24 20:00 Chloride 97 mmol/L (98-107) L 10/14/24 20:00 Carbon Dioxide 24 mmol/L (22-29) 10/14/24 20:00 Anion Gap 22.9 (5-19) H 10/14/24 20:00 BUN 11 mg/dL (6-20) 10/14/24 20:00 Creatinine 0.8 mg/dL (0.5-0.9) 10/14/24 20:00 GFR Calculation 81.2 mL/min (90-130) L 10/14/24 20:00 Glucose 83 mg/dL (65-115) 10/14/24 20:00 Calculated Osmolality 289 mOsm/kg (285-295) 10/14/24 20:00 Calcium 9.0 mg/dL (8.5-10.5) 10/14/24 20:00 Total Bilirubin 0.4 mg/dL (0.15-1.2) 10/14/24 20:00 AST 13 U/L (0-32) 10/14/24 20:00 ALT 15 U/L (0-33) 10/14/24 20:00 Alkaline Phosphatase 52 U/L (35-105) 10/14/24 20:00 Total Protein 6.1 g/dL (6.6-8.7) L 10/14/24 20:00 Albumin 4.0 g/dL (3.5-5.2) 10/14/24 20:00 Globulin 2.1 g/dL (1.3-4.6) 10/14/24 20: Lipase 29 U/L (13-60) 10/14/24 20:00 HCG, Qual Negative (Negative) 10/14/24 20:36 Urine Color Yellow (Yellow) 10/14/24: Urine Appearance Cloudy (CLEAR) A 10/14/24 20: Urine pH 5.5 (5-7) 10/14/24 20:36 Ur Specific [place] 1.031 (1.005-1.030) H 10/14/24 20:36 Urine Protein Negative (Negative) 10/14/24 20: Urine Glucose (UA) Negative (Normal) 10/14/24: Urine Ketones Negative (Negative) 10/14/24 20: Urine Blood Negative (Negative) 10/14/24 20: Urine Nitrate Negative (Negative) 10/14/24: Urine Bilirubin Negative (Negative) 10/14/24: Urine Urobilinogen 1.0 mg/dL (Negative) 10/14/24 20:36 Ur Leukocyte Esterase Negative (Negative) 10/14/24 20:36 Urine RBC 3-5 /hpf (0-2) 10/14/24 20:36 Urine WBC 6-10 /hpf (0-5) 10/14/24 20:36 Ur Squamous Epith Cells 11-20 /hpf (0-5) 10/14/24 20:36 Amorphous Sediment Not Reportable 10/14/24 20:36 Urine Bacteria 4+ /hpf (NONE) H 10/14/24 20:36 Hyaline Casts 3.30 /lpf 10/14/24 20:36 All radiology interpretation(s) finalized by discharge Discharge Plan Discharge Patient Disposition: Home Clinical Impression: Neutropenia, Back pain, Bladder wall thickening Condition: Stable Prescriptions: No Action acetaminophen 500 mg capsule 500 mg PO Q6H PRN desvenlafaxine succinate 25 mg tablet extended release 24 hr 25 mg PO DAILY neomycin-polymyxin B-dexameth [Maxitrol] 3.5mg/mL-10,000 unit/mL-0.1 % drops,suspension 1 drp ophthalmic (eye) Q2H 7 Days Qty: 5 0RF levofloxacin 500 mg tablet 500 mg PO DAILY 7 Days Qty: 7 0RF clomipramine 50 mg capsule See Rx Instructions .ROUTE .COMPLEX Qty: 90 0RF Dose Instruction: TAKE 3 CAPSULES BY MOUTH AT BEDTIME Rx Instructions: TAKE 3 CAPSULES BY MOUTH AT BEDTIME ferrous sulfate [FeroSul] 325 mg (65 mg iron) tablet See Rx Instructions .ROUTE .COMPLEX Qty: 60 0RF Dose Instruction: TAKE 1 TABLET BY MOUTH TWICE DAILY Rx Instructions: TAKE 1 TABLET BY MOUTH TWICE DAILY Premphase 0.625 mg (14)/ 0.625mg-5mg(14) tablet 1 tab PO QAM Qty: 28 0RF Protonix 40 mg tablet,delayed release (DR/EC) 40 mg PO DAILY Qty: 90 3RF levothyroxine [Synthroid] 125 mcg Tablet 125 mcg PO QAM hydroxyzine HCl 25 mg tablet 25 mg PO BID lorazepam [Ativan] 1 mg tablet 1 mg PO BID MDD 3 tabs Rx Instructions: Take one tab in the am and two at night buspirone 15 mg tablet 15 mg PO BID propranolol 10 mg tablet 10 mg PO BID Advil PM 200-38 mg Tablet 2 - 3 tab PO BEDTIME PRN (Reason: Sleep) Hold Instructions: Resume on 11/05/23. melatonin 5 mg Tablet 10 mg PO BEDTIME PRN (Reason: Sleep) lactulose 10 gram/15 mL Syrup 20 g PO DAILY PRN (Reason: Constipation) Probiotic 10 billion cell Capsule 10,000 mmu cells PO DAILY Discharge Orders: Discharge ED (Routine); Ordered 10/15/24 Ordered By: Viktoriya Hennessy Referrals: Lamberto Mejias MD [Primary Care Provider] - Discharge Diet: Advance as tolerated Discharge Activity: Resume usual activity Patient Instructions: Pain Management, Interstitial Cystitis (ED), Neutropenia (ED) Activity Restrictions/Additional Instructions: Please follow-up with Dr. Bangura-hematology oncology. Call Wednesday Please follow-up with your primary care doctor Wednesday as planned Please return to the emergency department as needed for new, concerning, worsening symptoms Coding Level of Care Code ED Measuring Machine Tender for Alexei Zhao
[2024-10-15 00:25] VITALS: BP 118/78; PULSE 87; RESP 18; O2SAT 98
== END 2024-10-15 00:26 | disposition home or self-care (01) ==
PROVIDERS: Emergency Provider Nurse Practitioner; PCP Family Medicine
DX: D70.9 Neutropenia, unspecified (principal); M54.9 Dorsalgia, unspecified; N32.89 Other specified disorders of bladder
CPT/HCPCS: 36415; 74176; 80053; 81001; 81025; 83690; 85025; 99284

== ENCOUNTER → 2024-11-02 10:41 | Outpatient (BNVA) | payer MEDICARE, MEDICAID, SELFPAY | PROVIDERS: PCP Family Medicine; Visit Provider Family Medicine | DX: J06.9 Acute upper respiratory infection, unspecified (principal) | CPT/HCPCS: 87400; 87426 ==

== ENCOUNTER 2024-11-06 13:49 | Oncology outpatient (recurring) (ONCR) | payer MEDICARE, MEDICAID, SELFPAY | END 2024-11-10 23:59 | disposition home or self-care (01) | PROVIDERS: PCP Family Medicine; Visit Provider Internal Medicine Medical Oncology | DX: D70.9 Neutropenia, unspecified (principal) | CPT/HCPCS: 99214 ==

== ENCOUNTER → 2024-12-05 15:37 | Outpatient (BNVA) | payer MEDICARE, MEDICAID, SELFPAY | PROVIDERS: PCP Family Medicine | DX: K80.20 Calculus of gallbladder without cholecystitis without obstruction (principal); R10.32 Left lower quadrant pain; R10.9 Unspecified abdominal pain | CPT/HCPCS: 80053; 83690; 85025 ==

== ENCOUNTER 2024-12-28 07:52 | Outpatient (CLI) | payer MEDICARE, MEDICAID, SELFPAY ==
--- NOTE | 2024-12-28 08:00 | NM_ITS ---
WS: [id number] NUCLEAR MEDICINE HIDA SCAN WITH GALLBLADDER EJECTION FRACTION HISTORY: HIDA scan - Concern for gallbladder disease COMPARISON: CT 10/14/2024 and ultrasound 10/19/2023 TECHNIQUE: The patient was intravenously injected with 6.1 mCi of TC99m Mebrofenin. Immediate imaging over the right upper quadrant was followed by 5 minute image and additional images for a total of 60 minutes. Normal uptake of radiotracer throughout the liver. Activity identified in the gallbladder at 15 minutes and well distended by 60 minutes. Activity in the proximal small bowel was seen by 30 minutes. Good washout of the radiotracer from the liver by 60 minutes. The patient then drank 8 ounces of Ensure Plus. Ejection fraction at 60 minutes was 68%. Normal GB ejection fraction is 35-75%. Post fatty meal symptoms: None. NM/NM hepatobiliary w phar* [id number] IMPRESSION: 1. Normal HIDA scan. 2. Normal gallbladder ejection fraction.
== END 2024-12-28 07:53 | disposition home or self-care (01) ==
PROVIDERS: Family Provider Psychiatry & Neurology Psychiatry; PCP Family Medicine; Visit Provider Family Medicine
DX: R10.11 Right upper quadrant pain (principal)
CPT/HCPCS: 78227; A9537

== ENCOUNTER 2025-02-05 11:43 | Oncology outpatient (recurring) (ONCR) | payer MEDICARE, MEDICAID, SELFPAY ==
[2025-02-05 12:16] LABS: Basophils # 0.1 10^3/uL (0.0-0.1); Basophils % 2.1 %; Eosinophils # 0.2 10^3/uL (0.0-0.8); Eosinophils % 5.6 %; Hematocrit 40.5 % (36-47); Lymphocytes # 1.2 10^3/uL (0.8-4.8); Lymphocytes % 40.4 %; Mean Corpuscular HGB Conc 34.8 g/dL (30-55); Mean Corpuscular Volume 83.2 fl (85-98); Mean Platelet Volume 9.4 fL (7.4-10.4); Monocytes # 0.5 10^3/uL (0.2-0.9); Monocytes % 16.1 %; Neutrophils # 1.01 10^3/uL (1.8-7.7); Neutrophils % 35.4 %; Nucleated Red Blood Cells % 0 %; Platelet Count 255 10^3/cmm (157-399); Red Blood Count 4.87 10^6/uL (3.85-5.65); Red Cell Distribution Width 13.1 % (12.1-15.1); White Blood Count 2.85 10^3/uL (3.29-11.43)
[2025-02-05 12:57] LABS: Alanine Aminotransferase 17 U/L (0-33); Alkaline Phosphatase 46 U/L (35-105); Anion Gap 16.2 (5-19); Aspartate Amino Transferase 16 U/L (0-32); Blood Urea Nitrogen 8 mg/dL (6-20); Carbon Dioxide 19 mmol/L (22-29); Chloride 108 mmol/L (98-107); Creatinine Clr Calc Pharmacy 148.6937; Ferritin 17 ng/mL (15-150); Globulin 2.4 g/dL (1.3-4.6); Glomerular Filtration Rate 113.1 mL/min (90-130); Glucose 95 mg/dL (65-115); Iron 98 ug/dL (37-145); Osmolality Calculated 286 mOsm/kg (285-295); Percent Saturation 28.4 % (20-50); Potassium 4.2 mmol/L (3.5-5.1); Sodium 139 mmol/L (136-145); Thyroid Stimulating Hormone 1.49 uIU/mL (0.27-4.20); Total Bilirubin 0.4 mg/dL (0.15-1.2); Total Iron Binding Capacity 344 mcg/dl; Total Protein 6.4 g/dL (6.6-8.7); Unsaturated Iron Binding 246 ug/dL (112-347); Vitamin B12 271 pg/mL (232-1245)
[2025-02-05 13:11] LABS: Folate Level 11.2 ng/mL (4.8-37.3)
== END 2025-02-07 23:59 | disposition home or self-care (01) ==
PROVIDERS: Family Provider Psychiatry & Neurology Psychiatry; PCP Family Medicine; Visit Provider Internal Medicine Medical Oncology
DX: D70.9 Neutropenia, unspecified (principal); M25.572 Pain in left ankle and joints of left foot; E22.1 Hyperprolactinemia
CPT/HCPCS: 36415; 80053; 82607; 82728; 82746; 83540; 83550; 84443; 85025; 99214

== ENCOUNTER 2025-05-08 09:40 | Oncology outpatient (recurring) (ONCR) | payer MEDICARE, MEDICAID, SELFPAY ==
[2025-05-08 10:24] LABS: Hematocrit 38.9 % (36-47); Hemoglobin 13.50 g/dL (11.27-16.99); Mean Corpuscular HGB Conc 34.7 g/dL (30-55); Mean Corpuscular Hemoglobin 28.8 pg (27-33); Mean Corpuscular Volume 82.9 fl (85-98); Nucleated Red Blood Cells % 0 %; Platelet Count 235 10^3/cmm (157-399); Red Blood Count 4.69 10^6/uL (3.85-5.65); White Blood Count 2.77 10^3/uL (3.29-11.43)
[2025-05-08 10:45] LABS: Alanine Aminotransferase 13 U/L (0-33); Albumin Level 3.8 g/dL (3.5-5.2); Alkaline Phosphatase 48 U/L (35-105); Anion Gap 18.0 (5-19); Aspartate Amino Transferase 13 U/L (0-32); Blood Urea Nitrogen 7 mg/dL (6-20); Calcium 8.6 mg/dL (8.5-10.5); Carbon Dioxide 22 mmol/L (22-29); Chloride 102 mmol/L (98-107); Creatinine Clr Calc Pharmacy 128.4059; Globulin 2.4 g/dL (1.3-4.6); Glucose 113 mg/dL (65-115); Osmolality Calculated 285 mOsm/kg (285-295); Potassium 4.0 mmol/L (3.5-5.1); Sodium 138 mmol/L (136-145); Total Protein 6.2 g/dL (6.6-8.7)
== END 2025-05-10 23:59 | disposition home or self-care (01) ==
PROVIDERS: Nurse Practitioner Family; PCP Family Medicine; Visit Provider Internal Medicine Medical Oncology
DX: D70.9 Neutropenia, unspecified (principal)
CPT/HCPCS: 36415; 80053; 85025; 99213

== ENCOUNTER 2025-07-03 16:24 | Outpatient (CLI) | payer MEDICARE, MEDICAID, SELFPAY ==
--- NOTE | 2025-07-03 16:32 | XR_ITS ---
WS: [id number] Exam: XR knee LT 3V* [id number] Date/Time of Exam: 07/03/2025 4:36 PM Reason For Exam: Left knee xray No acute fracture. The joint compartments are preserved. No joint effusion. XR/XR knee LT 3V* [id number] IMPRESSION: 1. Negative LEFT knee.
== END 2025-07-03 16:25 | disposition home or self-care (01) ==
LOC: RAD 16:29
PROVIDERS: PCP Family Medicine; Visit Provider Family Medicine
DX: M25.562 Pain in left knee (principal)
CPT/HCPCS: 73562

== ENCOUNTER 2025-07-19 06:53 | Outpatient (CLI) | payer MEDICARE, MEDICAID, SELFPAY ==
--- NOTE | 2025-07-19 07:00 | US_ITS ---
WS: [id number] US transvaginal [id number] HISTORY: N94.6 - Dysmenorrhea, unspecified COMPARISON: 08/23/2023 Uterus: 7.3 cm x 4.0 cm x 3.4 cm. Normal size anteverted uterus. No fibroid or mass. Endometrium: 0.5 cm. Normal size with no increased vascularity. No mass identified. Right ovary: 2.2 cm x 1.4 cm x 2.3 cm. Normal size and vascularity, no cystic or solid masses. Small ovarian follicle with a maximum diameter of 1.3 cm. Normal vascularity within the ovary. Left ovary: 2.2 cm x 1.9 cm x 2.8 cm. Normal size and vascularity, no cystic or solid masses. Small follicle. No free fluid in the cul-de-sac. US/US transvaginal [id number] IMPRESSION: 1. Normal endometrium at 0.5 cm. 2. No fibroid. 3. Normal ovaries.
== END 2025-07-19 06:54 | disposition home or self-care (01) ==
LOC: RAD 06:54
PROVIDERS: PCP Family Medicine; Visit Provider Obstetrics & Gynecology
DX: N94.6 Dysmenorrhea, unspecified (principal)
CPT/HCPCS: 76830

== ENCOUNTER → 2025-09-14 08:59 | Outpatient (BNVA) | payer MEDICARE, MEDICAID, SELFPAY | PROVIDERS: PCP Family Medicine; Visit Provider Orthopaedic Surgery | DX: M62.552 Muscle wasting and atrophy, not elsewhere classified, left thigh (principal); M22.2X2 Patellofemoral disorders, left knee | CPT/HCPCS: 73560; 73565; 99204 ==